=== PATIENT | male | born 1965 | race Caucasian/White ===

== ENCOUNTER 2016-11-29 10:35 | Day surgery (SDC) | payer OTHER ==
[2016-11-28 09:54] VITALS: BMI 24.3
--- NOTE | 2016-11-29 12:23 | HP ---
History & Physical Update - History History: No Change - Physical Physical: No Change - Assessment Assessment: No Change - Plan Plan: No Change
[2016-11-29] MEDS ORDERED: ACETAMINOPHEN 1000 MG/100 ML VIAL (NON FORMULARY) IVPB ONE (12:24)
[2016-11-29] MEDS ORDERED: LIDOCAINE HCL/PF 2% SDV 5ML VIAL ONE (12:26)
[2016-11-29] MEDS ORDERED: LEVOFLOXACIN 500 MG IVPB 100 ML IVPB ONE (12:26)
[2016-11-29] MEDS ORDERED: PROPOFOL 20 ML ONE (12:27)
[2016-11-29] MEDS ORDERED: MIDAZOLAM HCL 2 MG/2 ML SINGLE DOSE VIAL ONE (12:27)
[2016-11-29] MEDS ORDERED: DEXTROSE 5%-0.45% SALINE 1,000 ML IV SCH (12:30)
[2016-11-29] MEDS ORDERED: LEVOFLOXACIN 500 MG PREMIX BAG IVPB ONE (12:38)
[2016-11-29] MEDS ORDERED: LIDOCAINE HCL 2% JELLY 10 ML CARTRIDGE ONE (12:58)
[2016-11-29] MEDS ORDERED: LIDOCAINE HCL 2% JELLY 10 ML CARTRIDGE TP ONE (13:01)
[2016-11-29] MEDS ORDERED: ONDANSETRON 4 MG/2 ML VIAL IVPUSH PRN (13:21)
[2016-11-29] MEDS ORDERED: oxyCODONE HCL 5 MG TABLET PO PRN (13:21)
[2016-11-29] MEDS ORDERED: LACTATED RINGERS SOLUTION 1,000 ML IV SCH (13:30)
[2016-11-29 14:05] VITALS: TEMP 98
[2016-11-29] MEDS ORDERED: oxyCODONE HCL 5 MG TABLET ONE (15:38)
[2016-11-29 16:11] VITALS: BP 126/89; PULSE 90
--- NOTE | 2016-12-25 19:40 | OP ---
DATE OF OPERATION: 11/29/2016 PREOPERATIVE DIAGNOSIS: Bladder tumor. POSTOPERATIVE DIAGNOSIS: Normal cystoscopy. SURGEON: Wesley Dallas MD PROCEDURE: Cystoscopy. SPECIMENS: None. ESTIMATED BLOOD LOSS: None. DRAINS: None. PREOPERATIVE INDICATIONS: The patient is a 51-year-old male who was being worked up for abdominal pain, when he underwent a CAT scan, which revealed a "possible 1.1 x 0.5 cm polypoid lesion along the right posterior urinary bladder wall." Patient has a history of smoking but denies gross hematuria. He comes to the OR for cystoscopy. OPERATION: The patient was brought to the OR, placed on the table in the supine position, given anesthesia and placed in the modified lithotomy position. The groin was prepped and draped sterilely. Cystoscopy was performed. The urethra appeared to be normal. The prostate itself was mildly enlarged but otherwise normal. The bladder was examined. Both UOs were seen, they were normal with clear efflux. No tumors or stones were seen. Specifically in the area on the CAT scan was also looked at and was completely normal. The bladder was emptied. The patient was woken up. WESLEY DALLAS M.D. [id number]
== END 2016-11-29 16:19 | disposition home or self-care (01) ==
LOC: JASU-SURG 10:35
PROVIDERS: ATTEND Urology
PROC: 0TJB8ZZ Inspection of Bladder, Via Natural or Artificial Opening Endoscopic (ICD-10-PCS; principal; 2016-11-29 12:00)
DX: D41.4 Neoplasm of uncertain behavior of bladder (principal); R31.21 Asymptomatic microscopic hematuria
CPT/HCPCS: 94760

== ENCOUNTER 2016-12-02 11:33 | Emergency (ER) | payer OTHER ==
--- NOTE | 2016-12-02 11:50 | PDOC ---
Attending Attestation - Resident Resident Name: Misbah Graf - ED Attending Attestation I have performed the following: I have examined & evaluated the patient, The case was reviewed & discussed with the resident, I agree w/resident's findings & plan, Exceptions are as noted - HPI HPI: 12/02/16 11:49 The patient is a 51-year-old male s/p cystoscopy on Sunday who presents with several days of intermittent hematuria, that resolved yesterday and has been followed by frequency, urgency, hesitancy. No dysuria. No fever. No back pain. 12/02/16 12:31 - Physicial Exam PE: 12/02/16 12:33 He is well appearing and in no acute distress He does have bladder hypertrophy on physical exam He has no CVA tenderness 12/02/16 13:25 - Medical Decision Making 12/02/16 13:25 Bladder scan with 900ml of bladder volume Merchant placed with relief of his symptoms and output of 1200ml of clear urine 12/02/16 13:26 CBC and UA noted Chemistries pending
[2016-12-02 11:52] VITALS: BP 124/62; PULSE 77; TEMP 97.8; BMI 24.3
--- NOTE | 2016-12-02 12:02 | PDOC ---
History of Present Illness - General Chief Complaint: Urinary Problem Stated Complaint: urinary problem Time Seen by Provider: 12/02/16 11:37 History Source: Patient Exam Limitations: No Limitations - History of Present Illness Initial Comments: 12/02/16 12:30 Patient is a 51 year old male with significant PMH of Diverticulitis, DM & s/p Bladder polypectomy 3 days ago who presents to ED with urinary retention. He states the procedure on Sunday was to remove a polyp, but no polyp was found. He was discharged on Levaquin & percocet for pain management. On the patient developed hematuria which resolved within 1 day. Yesterday he noted his urine output had become minimal and he was starting to dribble urine whenever he had the urge to urinate. He has increased frequency, urgency and dysuria. The urine is no longer bloody. He denies fever, chills, or flank pain. Past History - Travel Traveled outside of the country in the last 30 days: No Close contact w/someone who was outside of country & ill: No - Past Medical History Allergies/Adverse Reactions: Allergies Allergy/AdvReac Type Severity Reaction Status Date / Time aspirin Allergy Verified 12/02/16 11:40 Penicillins Allergy Verified 12/02/16 11:40 Home Medications: Ambulatory Orders Cyclobenzaprine HCl [Flexeril -] 10 mg PO TID PRN 09/16/16 Oxycodone HCl/Acetaminophen [Percocet 5-325 mg Tablet] 1 tab PO Q6H PRN #12 tablet MDD 4 tabs 09/26/16 Pantoprazole Sodium 40 mg PO DAILY tablet 09/27/16 Glimepiride 1 mg PO daily in PM tablet 11/24/16 Mag Hydrox/Al Hydrox/Simeth [Mylanta *Suspension*] 30 ml PO Q6H 11/28/16 Zolpidem Tartrate [Ambien] 10 mg PO HS PRN 11/28/16 Levofloxacin [Levaquin -] 500 mg PO DAILY #3 tablet 11/29/16 Oxycodone HCl/Acetaminophen [Percocet 5-325 mg Tablet -] 1 tab PO Q4H #20 tablet MDD 6 11/29/16 Levofloxacin [Levaquin -] 500 mg PO DAILY #4 tablet 12/02/16 Anemia: No Asthma: No Cancer: No Cardiac Disorders: No CVA: No COPD: No CHF: No Dementia: No Diabetes: Yes GI Disorders: Yes (DIVERTICULITIS) Disorders: No HTN: No Hypercholesterolemia: Yes Kidney Stones: Yes Liver Disease: No Seizures: No Thyroid Disease: No - Surgical History Abdominal Surgery: Yes Orthopedic Surgery: Yes (left knee surgery) - Psycho/Social/Smoking Cessation Hx Anxiety: No Suicidal Ideation: No Smoking Status: Yes Smoking History: Current every day smoker Have you smoked in the past 12 months: Yes Number of Cigarettes Smoked Daily: 12 Information on smoking cessation initiated: Yes 'Breaking Loose' booklet given: 09/26/16 Hx Alcohol Use: No (denies) Drug/Substance Use Hx: Yes (cocaine hx) Substance Use Type: Cocaine Hx Substance Use Treatment: No Review of Systems - Review of Systems Able to Perform ROS?: Yes Is the patient limited Swedish proficient: No : Yes: Dysuria, Frequency, Hematuria, Urgency All Other Systems: Reviewed and Negative *Physical Exam - Vital Signs Last Vital Signs Temp Pulse Resp BP Pulse Ox 97.8 F 77 16 124/62 98 12/02/16 11:34 12/02/16 11:34 12/02/16 11:34 12/02/16 11:34 12/02/16 11:34 - Physical Exam General Appearance: Yes: Nourished, Appropriately Dressed, Mild Distress HEENT: positive: EOMI, XIAO, Normal ENT Inspection Neck: positive: Trachea midline, Normal Thyroid, Supple Respiratory/Chest: positive: Lungs Clear, Normal Breath Sounds Cardiovascular: positive: Regular Rhythm, Regular Rate, S1, S2 Gastrointestinal/Abdominal: positive: Normal Bowel Sounds, Flat, Soft Male Genitalia: positive: normal genitalia. negative: discharge, testicular tenderness, testicular mass, hernia, hematuria Musculoskeletal: positive: Normal Inspection Extremity: positive: Normal Inspection, Normal Range of Motion Integumentary: positive: Normal Color, Dry, Warm Neurologic: positive: Fully Oriented, Alert, Normal Mood/Affect, Motor Strength 03/09 ED Treatment Course - LABORATORY CBC & Chemistry Diagram: 12/02/16 12:57 12/02/16 12:57 Medical Decision Making - Medical Decision Making 12/02/16 12:38 Will determine urinary retention with bladder scan. Sent UA which showed elevated WBC's & urine in blood but (-) nitrites/LE. Ordered CBC & CMP to assess for kidney injury. 12/02/16 13:03 Bladder scan shows >900mL urine retained. Will need catheter placement. 12/02/16 13:34 1.1 liters urine output after dennis placed. Mild leukocytosis noted on CBC. Will get in contact with his Urologist Dr Kc. 12/02/16 13:[address] Bryant. Patient to be discharged with dennis in place. Will send prescription for Levaquin and instruct patient to see Dr Alfonso in office on Sunday. *DC/Admit/Observation/Transfer Diagnosis at time of Disposition: Urinary retention - Discharge Dispostion Disposition: HOME Admit: No - Prescriptions Prescriptions: Levofloxacin [Levaquin -] 500 mg PO DAILY #4 tablet - Referrals Referrals: Wesley Dallas MD [Staff Physician] - 2 Days - Patient Instructions Additional Instructions: Visit Dr Dallas on Sunday & he will remove dennis catheter. Take levaquin daily. If urine stops flowing or bladder/kidney pain starts, alert MD immediately & return to ED - Post Discharge Activity Work/School Note: Back to Work
[2016-12-02 12:07] LABS: PH,URINE 5.5 (4.5-8); URINE APPEARANCE SL CLOUDY; URINE BILIRUBIN Negative (NEGATIVE); URINE BLOOD 3+ (NEGATIVE); URINE COLOR a; URINE GLUCOSE (UA) 3+ (NEGATIVE); URINE KETONE Negative (NEGATIVE); URINE LEUK ESTERASE Negative (NEGATIVE); URINE NITRITE Negative (NEGATIVE); URINE PROTEIN 1+ (NEGATIVE); URINE UROBILINOGEN 0.2 E.U/dl (0.2-1.0)
[2016-12-02 12:32] LABS: URINE RBC 50-80 /hpf (0-3); URINE WBC 20-50 (3-5)
[2016-12-02 13:10] LABS: MEAN PLT VOLUME 6.8 fl (7.5-11.1)
[2016-12-02 13:17] LABS: MCH 29.2 pg (25.7-33.7); MCHC 33.7 g/dl (32.0-35.9); MEAN CELL VOLUME 86.5 fl (80-96); PLATELET COUNT 598 K/MM3 (134-434); RDW 12.7 % (11.9-15.9); WHITE BLOOD COUNT 13.3 K/mm3 (4.0-10.0)
[2016-12-02 13:25] LABS: ALBUMIN 4.6 g/dl (3.5-5.0); ALK PHOS 55 U/L (32-92); ANION GAP 13 (8-16); BILIRUBIN,TOTAL 0.6 mg/dl (0.2-1.0); CALCIUM 10.2 mg/dl (8.4-10.2); CO2 26 mmol/L (22-28); GLUCOSE,RANDOM 209 mg/dl (74-106); SGOT/AST 27 U/L (10-42); SGPT/ALT 18 U/L (10-40); TOT PROT 7.8 g/dl (6.4-8.3)
== END 2016-12-02 14:46 | disposition home or self-care (01) ==
LOC: FER 11:33
PROC: 0T9B70Z Drainage of Bladder with Drainage Device, Via Natural or Artificial Opening (ICD-10-PCS; principal; 2016-12-02)
DX: R33.9 Retention of urine, unspecified (principal); E78.00 Pure hypercholesterolemia, unspecified; F17.210 Nicotine dependence, cigarettes, uncomplicated
CPT/HCPCS: 36415; 80053; 81003; 81015; 85027; 87086; 99284-25

== ENCOUNTER 2017-11-02 06:09 | Inpatient (IN) | payer OTHER ==
--- NOTE | 2017-11-02 06:52 | PDOC ---
History of Present Illness - General Chief Complaint: Pain Stated Complaint: ABD PAIN/NAUSEA/VOMITING Time Seen by Provider: 11/02/17 06:47 History Source: Patient Exam Limitations: No Limitations - History of Present Illness Initial Comments: 11/02/17 06:57 This is a 52-year-old male who has a long history of chronic back and knee pain for which she takes Percocet 10 mg 3 times a day. Patient comes in today complaining of nausea, vomiting and abdominal pain. Patient denies any diarrhea. Patient said he has had symptoms 1 day. Patient said he is unable to keep anything in. Patient said however he is able to keep his Percocet in and did take Percocet 10mg prior to coming in. Patient denies any chest pain, shortness of breath, fever, chills, urinary complaints. PAST MEDICAL HISTORY: no significant history PAST SURGICAL HISTORY: no significant history FAMILY HISTORY: no pertinant history SOCIAL HISTORY: Pt lives with family and is employed. MEDICATIONS: reviewed ALLERGIES: As per nursing notes Review of Systems General: No fevers or chills, no weakness, no weight loss HEENT: No change in vision. No sore throat,. No ear pain CardioVascular: No chest pain or shortness of breath Respiratory:No cough, or wheezing. Gastrointestinal: + nausea, + vomitting, no diarrhea or constipation, No rectal bleeding Genitourinary: No dysuria, hematuria, or frequency Musculoskeletal: No joint or muscle pain or swelling Neurologic: No headache, vertigo, dizziness or loss of consciousness Psychiatric: nor depression Skin: No rashes or easy bruising Endocrine: no increased thirst or abnormal weight change Allergic: no skin or latex allergy All other systems reviewed and normal Exam: General: Well-nourished well-developed individual, no acute distress HEENT: Throat: Normal, tonsils normal, no erythema or exudate Neck: Supple, no meningeal signs, no lymphadenopathy Eyes::Pupils equal reactive and round, extraocular motion intact Chest: Nontender to palpation Cardiac: S1-S2 normal, regular rate and rhythm, no murmurs rubs or gallops Respiratory: Lungs clear to auscultation bilateral Abdomen: Soft, nondistended, normal bowel sounds,mildly tender to palpation diffusely, no guarding or rebound Extremities: Warm, dry, no cyanosis, clubbing, or edema Skin: No rashes Neuro: Alert and oriented x3, CN II - XII intact, nonfocal exam with normal strength, normal sensation, normal reflexes, normal gait, Psych: Normal mood and affect Care of this patient was transferred to Dr. Barragan at 7 AM. Patient's whole workup is still pending Case discussed in detail with oncoming Emergency Physician including history, physical exam and ancillary studies. Oncoming Emergency Physician has assumed care for the patient and will complete the evaluation and treatment. Patient is aware of the plan. Pt is clinically unchanged and stable. Past History - Past Medical History Allergies/Adverse Reactions: Allergies Allergy/AdvReac Type Severity Reaction Status Date / Time aspirin Allergy Verified 12/02/16 11:40 Penicillins Allergy Verified 12/02/16 11:40 Home Medications: Ambulatory Orders Cyclobenzaprine HCl [Flexeril -] 10 mg PO TID PRN 09/16/16 Zolpidem Tartrate [Ambien] 10 mg PO HS PRN 11/28/16 Cholecalciferol (Vitamin D3) [Vitamin D3] 2,000 unit PO DAILY tablet 02/11/17 Oxycodone HCl/Acetaminophen [Percocet 10-325 mg Tablet] 1 each PO TID 11/02/17 Anemia: No Asthma: No Cancer: No Cardiac Disorders: No CVA: No COPD: No CHF: No Dementia: No Diabetes: Yes GI Disorders: Yes (DIVERTICULITIS) Disorders: No HTN: No Hypercholesterolemia: Yes Kidney Stones: Yes Liver Disease: No Seizures: No Thyroid Disease: No - Surgical History Abdominal Surgery: Yes Orthopedic Surgery: Yes (left knee surgery) - Suicide/Smoking/Psychosocial Hx Smoking Status: Yes Smoking History: Current every day smoker Have you smoked in the past 12 months: Yes Number of Cigarettes Smoked Daily: 10 Information on smoking cessation initiated: Yes 'Breaking Loose' booklet given: 11/02/17 Hx Alcohol Use: No (denies) Drug/Substance Use Hx: Yes (cocaine hx) Substance Use Type: Cocaine Hx Substance Use Treatment: No *Physical Exam - Vital Signs Last Vital Signs Temp Pulse Resp BP Pulse Ox 97.9 F 103 H 20 132/87 100 11/02/17 06:14 11/02/17 06:14 11/02/17 06:14 11/02/17 06:14 11/02/17 06:14 ED Treatment Course - LABORATORY CBC & Chemistry Diagram: 11/02/17 07:00 11/02/17 07:00 *DC/Admit/Observation/Transfer Diagnosis at time of Disposition: Acute pancreatitis Qualifiers: Pancreatitis type: unspecified pancreatitis type Acute pancreatitis complication: unspecified Qualified Code(s): K85.90 - Acute pancreatitis without necrosis or infection, unspecified - Discharge Dispostion Condition at time of disposition: Guarded - Referrals - Patient Instructions - Post Discharge Activity
[2017-11-02] MEDS ORDERED: SODIUM CHLORIDE 1,000 ML IV ONE (06:54)
[2017-11-02] MEDS ORDERED: ONDANSETRON 4 MG/2 ML VIAL IVPB ONE (06:54)
[2017-11-02] MEDS ORDERED: HYOSCYAMINE SULFATE 0.125 MG *ODT PO ONE (06:55)
[2017-11-02] MEDS ORDERED: ONDANSETRON 4 MG/2 ML VIAL ONE (07:19)
[2017-11-02] MEDS ORDERED: HYOSCYAMINE SULFATE 0.125 MG *ODT ONE (07:19)
[2017-11-02] MEDS ORDERED: KETOROLAC TROMETHAMINE 30 MG/1 ML VIAL IVPUSH ONE ×2 (07:38→23:45)
[2017-11-02] MEDS ORDERED: KETOROLAC TROMETHAMINE 30 MG/1 ML VIAL ONE (07:44)
[2017-11-02 07:49] LABS: BASO % 0.1 % (0-2.0); EOS % 0.5 % (0-4.5); HEMATOCRIT 48.1 % (35.4-49); HEMOGLOBIN 16.4 GM/dl (11.7-16.9); LYMPH % 9.1 % (8-40); MCH 30.1 pg (25.7-33.7); MEAN CELL VOLUME 88.5 fl (80-96); MEAN PLT VOLUME 7.7 fl (7.5-11.1); MONO % 4.4 % (3.8-10.2); NEUT % 85.9 % (42.8-82.8); PLATELET COUNT 606 K/MM3 (134-434); RBC 5.44 M/mm3 (4.00-5.60); RDW 12.6 % (11.9-15.9); WHITE BLOOD COUNT 12.7 K/mm3 (4.0-10.8)
[2017-11-02 08:07] LABS: ALBUMIN 4.4 g/dl (3.5-5.0); ALK PHOS 64 U/L (32-92); ANION GAP 14 (8-16); BILIRUBIN,TOTAL 1.1 mg/dl (0.2-1.0); BLOOD UREA NITROGEN 22 mg/dl (7-18); CALCIUM 11.7 mg/dl (8.4-10.2); CHLORIDE 94 mmol/L (98-107); CO2 28 mmol/L (22-28); CREATININE 1.5 mg/dl (0.6-1.3); GLUCOSE,RANDOM 228 mg/dl (74-106); SGOT/AST 65 U/L (10-42); SGPT/ALT 73 U/L (10-40); SODIUM 136 mmol/L (136-145); TOT PROT 7.6 g/dl (6.4-8.3)
[2017-11-02 08:21] LABS: TROPONIN I (DFP) < 0.03 ng/ml (0.03-0.50)
[2017-11-02 08:47] LABS: LIPASE 515 U/L (22-51)
--- NOTE | 2017-11-02 09:52 | EKG ---
Test Reason : Blood Pressure : / mmHG Vent. Rate : 070 BPM Atrial Rate : 070 BPM P-R Int : 128 ms QRS Dur : 090 ms QT Int : 264 ms P-R-T Axes : 063 004 -54 degrees QTc Int : 285 ms POOR DATA QUALITY, INTERPRETATION MAY BE ADVERSELY AFFECTED SINUS RHYTHM WITH MARKED SINUS ARRHYTHMIA NONSPECIFIC T WAVE ABNORMALITY ABNORMAL ECG NO PREVIOUS ECGS AVAILABLE Confirmed by CAN CAO MD ([id number]) on 11/02/2017 9:51:44 AM Referred By: DR ERICKSON Confirmed By:CAN CAO MD
[2017-11-02] MEDS ORDERED: SODIUM CHLORIDE 1,000 ML IV STA (10:17)
[2017-11-02] MEDS ORDERED: PANTOPRAZOLE SODIUM 40 MG in SODIUM CHLORIDE 100 ML IVPB ONE (10:18)
[2017-11-02] MEDS ORDERED: PANTOPRAZOLE SODIUM 40 MG VIAL ONE (10:49)
--- NOTE | 2017-11-02 12:19 | PDOC ---
*Physical Exam - Vital Signs Last Vital Signs Temp Pulse Resp BP Pulse Ox 97.9 F 103 H 20 132/87 100 11/02/17 06:14 11/02/17 06:14 11/02/17 06:14 11/02/17 06:14 11/02/17 06:14 - Physical Exam Comments: 11/02/17 13:08 Patient appears to be controlled. No further vomiting. Nausea subsided. Admitted to hospitalist for bowel rest, intravenous fluids, and analgesics. Comments:: 11/02/17 12:[address] scan shows evidence of chronic pancreatitis, with superimposed acute pancreatitis. IV fluids, bowel rest, analgesics, admission and observation. ED Treatment Course - LABORATORY CBC & Chemistry Diagram: 11/02/17 07:00 11/02/17 07:00 - ADDITIONAL ORDERS Additional order review: Laboratory Results 11/02/17 11/02/17 07:00 07:00 Sodium 136 Potassium 4.0 Chloride 94 L Carbon Dioxide 28 Anion Gap 14 BUN 22 H D Creatinine 1.5 H D Creat Clearance w eGFR 48.77 Random Glucose 228 H D Calcium 11.7 H Total Bilirubin 1.1 H D AST 65 H D ALT 73 H D Alkaline Phosphatase 64 Creatine Kinase 42 Troponin I < 0.03 L Total Protein 7.6 Albumin 4.4 Lipase 515 H 11/02/17 07:00 RBC 5.44 MCV 88.5 MCHC 34.0 RDW 12.6 MPV 7.7 Neutrophils % 85.9 H D Lymphocytes % 9.1 D Monocytes % 4.4 Eosinophils % 0.5 Basophils % 0.1 - RADIOLOGY Radiology Studies Ordered: Category Date Time Status ABDOMEN & PELVIS CT W/O CONTR [CT] Stat CT Scan 11/02/17 08:09 Completed - Medications Given in the ED: ED Medications Discontinued Medications Generic Name Dose Route Start Last Admin Trade Name Freq PRN Reason Stop Dose Admin Hyoscyamine Sulfate 0.125 mg 11/02/17 06:55 11/02/17 07:22 Levsin Odt - PO 11/02/17 06:56 0.125 mg ONCE ONE Administration Sodium Chloride 1,000 mls @ 1,000 mls/hr 11/02/17 06:54 11/02/17 07:22 Normal Saline - IV 11/02/17 07:53 1,000 mls/hr .Q1H ONE Administration Sodium Chloride 1,000 mls @ 1,000 mls/hr 11/02/17 10:17 11/02/17 10:55 Normal Saline - IV 11/02/17 11:16 1,000 mls/hr ASDIR STA Administration Pantoprazole Sodium 40 mg/ 100 mls @ 200 mls/hr 11/02/17 10:18 11/02/17 10:55 Sodium Chloride IVPB 11/02/17 10:47 200 mls/hr ONCE ONE Administration Ketorolac Tromethamine 30 mg 11/02/17 07:38 11/02/17 07:48 Toradol Injection - IVPUSH 11/02/17 07:39 30 mg ONCE ONE Administration Ondansetron HCl 8 mg 11/02/17 06:54 11/02/17 07:22 Zofran Injection IVPB 11/02/17 06:55 8 mg ONCE ONE Administration *DC/Admit/Observation/Transfer Diagnosis at time of Disposition: Acute pancreatitis Qualifiers: Pancreatitis type: unspecified pancreatitis type Acute pancreatitis complication: unspecified Qualified Code(s): K85.90 - Acute pancreatitis without necrosis or infection, unspecified - Discharge Dispostion Condition at time of disposition: Guarded Admit: Yes - Referrals Referrals: Gildardo Coon MD [Primary Care Provider] - - Patient Instructions - Post Discharge Activity
--- NOTE | 2017-11-02 12:58 | HP ---
CHIEF COMPLAINT: abdominal pain, nausea and vomiting PCP: [facility] HISTORY OF PRESENT ILLNESS: Patient is a 52 y/o male with a past medical history of diverticulitis, cholelithasis, chronic pancreatitis, chronic back pain, duedonitis, and BPH. Patient reports two days of generalized abdominal pain with decreased appetite. He reports the abdominal pain worsened within the past 24 hours accompanied by nausea and vomiting. Patient reports he last ingested alcohol on 10/21/17. ER course was notable for: (1)lipase 515 (2)ct of abd/pelvis w/o contrast: acute pancreatitis, gallstone no evidence of acute cholecytiits, (3)ultrsound of abdomen fatty liver vs heaptocelluar disease, mobile gallstone, w/o evidence of acute cholecystitis, Recent Travel: none PAST MEDICAL HISTORY: see HPI PAST SURGICAL HISTORY: sigmoid resection (1999) Social History: employed resides at home Smoking:smoke pack a day of cigarettes Alcohol: reports last drank alcohol on 10/21/17 Drugs: no ivda Family History: non contributory Allergies aspirin Allergy (Verified 12/02/16 11:40) Penicillins Allergy (Verified 12/02/16 11:40) HOME MEDICATIONS: Home Medications Medication Instructions Recorded Cyclobenzaprine HCl [Flexeril -] 10 mg PO TID PRN 09/16/16 Zolpidem Tartrate [Ambien] 10 mg PO HS PRN 11/28/16 Cholecalciferol (Vitamin D3) 2,000 unit PO DAILY tablet 02/11/17 [Vitamin D3] Oxycodone HCl/Acetaminophen 1 each PO TID 11/02/17 [Percocet 10-325 mg Tablet] REVIEW OF SYSTEMS CONSTITUTIONAL: Absent: fever, chills, diaphoresis, generalized weakness, malaise, loss of appetite, weight change HEENT: Absent: rhinorrhea, nasal congestion, throat pain, throat swelling, difficulty swallowing, mouth swelling, ear pain, eye pain, visual changes CARDIOVASCULAR: Absent: chest pain, syncope, palpitations, irregular heart rate, lightheadedness , peripheral edema RESPIRATORY: Absent: cough, shortness of breath, dyspnea with exertion, orthopnea, wheezing, stridor, hemoptysis GASTROINTESTINAL: Present: abdominal pain,nausea, vomiting, Absent: abdominal distension, diarrhea, constipation, melena, hematochezia GENITOURINARY: Absent: dysuria, frequency, urgency, hesitancy, hematuria, flank pain, genital pain MUSCULOSKELETAL: Absent: myalgia, arthralgia, joint swelling, back pain, neck pain SKIN: Absent: rash, itching, pallor HEMATOLOGIC/IMMUNOLOGIC: Absent: easy bleeding, easy bruising, lymphadenopathy, frequent infections ENDOCRINE: Absent: unexplained weight gain, unexplained weight loss, heat intolerance, cold intolerance NEUROLOGIC: Absent: headache, focal weakness or paresthesias, dizziness, unsteady gait, seizure, mental status changes, bladder or bowel incontinence PSYCHIATRIC: Absent: anxiety, depression, suicidal or homicidal ideation, hallucinations. PHYSICAL EXAMINATION Vital Signs - 24 hr 11/02/17 06:14 Temperature 97.9 F Pulse Rate 103 H Respiratory 20 Rate Blood Pressure 132/87 O2 Sat by Pulse 100 Oximetry (%) GENERAL: Awake, alert, and fully oriented, in no acute distress. HEAD: Normal with no signs of trauma. EYES: Pupils equal, round and reactive to light, extraocular movements intact, sclera anicteric, conjunctiva clear. No lid lag. EARS, NOSE, THROAT: Ears normal, nares patent, oropharynx clear without exudates. Moist mucous membranes. NECK: Normal range of motion, supple without lymphadenopathy, JVD, or masses. LUNGS: Breath sounds equal, clear to auscultation bilaterally. No wheezes, and no crackles. No accessory muscle use. HEART: Regular rate and rhythm, normal S1 and S2 without murmur, rub or gallop. ABDOMEN: Soft, generalized abdominal tenderness, surgical scar to lower abdomen , well healed, non distended, normoactive bowel sounds, no guarding, no rebound , no masses. + hepatomegaly, negative splenomegaly. MUSCULOSKELETAL: Normal range of motion at all joints. No bony deformities or tenderness. No CVA tenderness. UPPER EXTREMITIES: 2+ pulses, warm, well-perfused. No cyanosis. No clubbing. No peripheral edema. LOWER EXTREMITIES: 2+ pulses, warm, well-perfused. No calf tenderness. No peripheral edema. NEUROLOGICAL: Cranial nerves II-XII intact. Normal speech. Normal gait. PSYCHIATRIC: Cooperative. Good eye contact. Appropriate mood and affect. SKIN: Warm, dry, normal turgor, no rashes or lesions noted, normal capillary refill. Laboratory Results - last 24 hr 11/02/17 11/02/17 11/02/17 07:00 07:00 07:00 WBC 12.7 H RBC 5.44 Hgb 16.4 Hct 48.1 MCV 88.5 MCH 30.1 MCHC 34.0 RDW 12.6 Plt Count 606 H MPV 7.7 Neutrophils % 85.9 H D Lymphocytes % 9.1 D Monocytes % 4.4 Eosinophils % 0.5 Basophils % 0.1 Sodium 136 Potassium 4.0 Chloride 94 L Carbon Dioxide 28 Anion Gap 14 BUN 22 H D Creatinine 1.5 H D Creat Clearance w eGFR 48.77 Random Glucose 228 H D Calcium 11.7 H Total Bilirubin 1.1 H D AST 65 H D ALT 73 H D Alkaline Phosphatase 64 Creatine Kinase 42 Troponin I < 0.03 L Total Protein 7.6 Albumin 4.4 Lipase 515 H ASSESSMENT/PLAN: F/E/N - npo-->ivf - replete lytes prn ppx - heparin - protonix - scd - oob dispo: pt requires inpatient admission Problem List - Problem (1) Acute pancreatitis Assessment/Plan: - ct of abdomen and pelvis and ultrasound reviewed,pt does have a hx of pancreatis, however, mobile stones was noted on ultrasound, trend amylase/ lipase, pending lipid panel, appreciate GI input (Mariella) - prn pain medication - npo except for ice chips Code(s): K85.90 - ACUTE PANCREATITIS WITHOUT NECROSIS OR INFECTION, UNSP Qualifiers: Pancreatitis type: unspecified pancreatitis type Acute pancreatitis complication: unspecified Qualified Code(s): K85.90 - Acute pancreatitis without necrosis or infection, unspecified (2) Cholelithiasis Assessment/Plan: - appreciate GI input Code(s): K80.20 - CALCULUS OF GALLBLADDER W/O CHOLECYSTITIS W/O OBSTRUCTION Qualifiers: Cholecystitis presence: without cholecystitis (3) Diabetes mellitus Assessment/Plan: - pt denies any home medications, pending hemoglobin a1c Code(s): E11.9 - TYPE 2 DIABETES MELLITUS WITHOUT COMPLICATIONS (4) Hyperlipidemia Assessment/Plan: - denies any statin use, pending lipid profile Code(s): E78.5 - HYPERLIPIDEMIA, UNSPECIFIED (5) Renal insufficiency Assessment/Plan: - creatine 1.5, baseline 0.9, prerenal due to hypovolemia, IV hydration, repeat creatine in the AM Code(s): N28.9 - DISORDER OF KIDNEY AND URETER, UNSPECIFIED Visit type - Emergency Visit Emergency Visit: Yes ED Registration Date: 11/02/17 Care time: The patient presented to the Emergency Department on the above date and was hospitalized for further evaluation of their emergent condition. - New Patient This patient is new to me today: Yes Date on this admission: 11/02/17 - Critical Care Critical Care patient: No
[2017-11-02] MEDS ORDERED: ZOLPIDEM TARTRATE 5 MG TABLET PO PRN (13:01)
[2017-11-02] MEDS ORDERED: ACETAMINOPHEN 325 MG TABLET (FP) PO PRN (13:10)
[2017-11-02] MEDS ORDERED: morphine CARPU-JECT 4 MG/1 ML DISP.SYRIN IVPUSH PRN (13:12)
[2017-11-02] MEDS ORDERED: SODIUM CHLORIDE 0.45% 1,000 ML IV SCH (14:45)
[2017-11-02] MEDS ORDERED: ONDANSETRON 4 MG/2 ML VIAL IVPUSH PRN (15:05)
[2017-11-02 15:11] LABS: PH,URINE 8.5 (4.5-8); URINE APPEARANCE Clear; URINE BILIRUBIN Negative (NEGATIVE); URINE BLOOD Negative (NEGATIVE); URINE GLUCOSE (UA) Trace (NEGATIVE); URINE KETONE Trace (NEGATIVE); URINE NITRITE Negative (NEGATIVE); URINE UROBILINOGEN 0.2 (0.2-1.0)
[2017-11-02 15:12] LABS: URINE COLOR YELLOW; URINE PROTEIN 1+ (NEGATIVE)
[2017-11-02 15:26] VITALS: BMI 22.2
[2017-11-02] MEDS ORDERED: SODIUM CHLORIDE 1,000 ML IV SCH ×2 (15:30→16:41)
--- NOTE | 2017-11-02 15:35 | CON.GI ---
Consult Consult Specialty:: GI - History of Present Illness History of Present Illness: Chart reviewed. A 52 yom admitted 1 day ago with epigastric, radiating to the back pain, which started the night before and escalated to severe prompting visit to ED. The pain was associated with nausea and vomiting. No fever, chills, diarrhea, melena , hematochezia, hematemesis, jaundice. Had 2 shots of Fireball the day before. History of pancreatitis in the past with pancreatic calcifications, dilated PD and inflammation around head of the pancrease on a CT obtained on this admission. US of the liver showed mobile GS and borderline CBD and no reported filling defects - History Source History Provided By: Patient, Medical Record - Alcohol/Substance Use Hx Alcohol Use: Yes (denies) - Smoking History Smoking history: Current every day smoker Have you smoked in the past 12 months: Yes Aproximately how many cigarettes per day: 10 Home Medications - Allergies Allergies/Adverse Reactions: Allergies Allergy/AdvReac Type Severity Reaction Status Date / Time aspirin Allergy Verified 12/02/16 11:40 Penicillins Allergy Verified 12/02/16 11:40 - Home Medications Home Medications: Ambulatory Orders Cyclobenzaprine HCl [Flexeril -] 10 mg PO TID PRN 09/16/16 Zolpidem Tartrate [Ambien] 10 mg PO HS PRN 11/28/16 Cholecalciferol (Vitamin D3) [Vitamin D3] 2,000 unit PO DAILY tablet 02/11/17 Oxycodone HCl/Acetaminophen [Percocet 10-325 mg Tablet] 1 each PO TID 11/02/17 Family Disease History - Family Disease History Family History: Unremarkable (non-contributory) Review of Systems Findings/Remarks: Please refer to H&P Physical Exam-GI Vital Signs: Vital Signs Temperature 99.2 F 11/02/17 15:07 Pulse Rate 103 H 11/02/17 15:07 Respiratory Rate 16 11/02/17 15:07 Blood Pressure 111/70 11/02/17 15:07 O2 Sat by Pulse Oximetry (%) 100 11/02/17 06:14 Constitutional: Yes: Well Nourished, No Distress, Calm Eyes: Yes: Conjunctiva Clear HENT: Yes: Atraumatic Neck: Yes: Supple Cardiovascular: Yes: Regular Rate and Rhythm Respiratory: Yes: Regular Gastrointestinal Inspection: No: Ascites, Distention ...Auscultate: Yes: Normoactive Bowel Sounds ...Palpate: Yes: Soft, Tenderness, Epigastium. No: Firm/Rigid, Guarding, Mass, Pulsatile Mass, Tenderness, Rebound Neurological: Yes: Alert, Oriented Labs: CBC, BMP 11/02/17 07:00 11/02/17 07:00 Laboratory Results - last 24 hr 11/02/17 11/02/17 11/02/17 07:00 07:00 07:00 WBC 12.7 H RBC 5.44 Hgb 16.4 Hct 48.1 MCV 88.5 MCH 30.1 MCHC 34.0 RDW 12.6 Plt Count 606 H MPV 7.7 Neutrophils % 85.9 H D Lymphocytes % 9.1 D Monocytes % 4.4 Eosinophils % 0.5 Basophils % 0.1 Sodium 136 Potassium 4.0 Chloride 94 L Carbon Dioxide 28 Anion Gap 14 BUN 22 H D Creatinine 1.5 H D Creat Clearance w eGFR 48.77 Random Glucose 228 H D Calcium 11.7 H Total Bilirubin 1.1 H D AST 65 H D ALT 73 H D Alkaline Phosphatase 64 Creatine Kinase 42 Troponin I < 0.03 L Total Protein 7.6 Albumin 4.4 Lipase 515 H Urine Color Urine Appearance Urine pH Ur Specific [place] Urine Protein Urine Glucose (UA) Urine Ketones Urine Blood Urine Nitrite Urine Bilirubin Urine Urobilinogen Ur Leukocyte Esterase 11/02/17 15:07 WBC RBC Hgb Hct MCV MCH MCHC RDW Plt Count MPV Neutrophils % Lymphocytes % Monocytes % Eosinophils % Basophils % Sodium Potassium Chloride Carbon Dioxide Anion Gap BUN Creatinine Creat Clearance w eGFR Random Glucose Calcium Total Bilirubin AST ALT Alkaline Phosphatase Creatine Kinase Troponin I Total Protein Albumin Lipase Urine Color Yellow Urine Appearance Clear Urine pH 8.5 H D Ur Specific [place] 1.015 Urine Protein 1+ H Urine Glucose (UA) Trace Urine Ketones Trace Urine Blood Negative Urine Nitrite Negative Urine Bilirubin Negative Urine Urobilinogen 0.2 Ur Leukocyte Esterase Negative Imaging - Results Cat Scan: Report Reviewed Ultrasound: Report Reviewed Problem List - Problems (1) Acute pancreatitis Code(s): K85.90 - ACUTE PANCREATITIS WITHOUT NECROSIS OR INFECTION, UNSP Qualifiers: Pancreatitis type: unspecified pancreatitis type Acute pancreatitis complication: unspecified Qualified Code(s): K85.90 - Acute pancreatitis without necrosis or infection, unspecified (2) Abdominal pain Code(s): R10.9 - UNSPECIFIED ABDOMINAL PAIN Qualifiers: Abdominal location: unspecified location Qualified Code(s): R10.9 - Unspecified abdominal pain (3) Cholelithiasis Code(s): K80.20 - CALCULUS OF GALLBLADDER W/O CHOLECYSTITIS W/O OBSTRUCTION Qualifiers: Cholecystitis presence: without cholecystitis (4) Smoking greater than 30 pack years Code(s): F17.210 - NICOTINE DEPENDENCE, CIGARETTES, UNCOMPLICATED (5) Hyperlipidemia Code(s): E78.5 - HYPERLIPIDEMIA, UNSPECIFIED Assessment/Plan Mild acute on chronic pancreatitis w/o other organ system involvement, or signs of cholangitis. CBD borderline size and dilated PB may be the consequence of chronic pancreatitis. R/o acute obstruction. Cholelithiasis w/o signs of cholecystitis. MRCP NPO IVF @ 5-10 ml/hr/kg pain and antiemetics PRN If MRCP positive for choledocolithiasis, will start abx and transfer [facility] for ERCP Sx eval for Cholelithiasis discussed with the patient and hospitalist
[2017-11-02] MEDS: morphine SULFATE 4 MG/ML VIAL IVPUSH PRN (15:53)
[2017-11-02] MEDS: NICOTINE 14 MG/24 HOURS TOPICAL PATCH TD SCH ×2 (15:56→17:14)
[2017-11-02] MEDS: LEVOFLOXACIN 250 MG IVPB 250 MG/50 ML MG IVPB SCH (17:02)
[2017-11-02 17:56] LABS: AMORP PHOS MODERATE /hpf (NONE SEEN); EPI CELLS FEW /HPF; URINE RBC 0-3 /hpf (0-3)
[2017-11-02] MEDS ORDERED: CIPROFLOXACIN 200 MG/D5W 100 ML IVPB SCH (22:00)
[2017-11-02] MEDS: METRONIDAZOLE PREMIXED IVPB 250 MG/50 ML MG IVPB SCH (23:35)
[2017-11-02] MEDS: HEPARIN NA (PORCINE) 5,000 UNITS/ML 1ML VIAL SQ SCH (23:35)
[2017-11-03] MEDS: morphine SULFATE 4 MG/ML VIAL IVPUSH PRN ×4 (01:26→18:30)
[2017-11-03] MEDS: METRONIDAZOLE PREMIXED IVPB 250 MG/50 ML MG IVPB SCH ×2 (04:58→09:02)
[2017-11-03] MEDS ORDERED: REFRIGERATED ANITBIOTICS ONE ×2 (09:25→16:33)
[2017-11-03] MEDS: PANTOPRAZOLE SODIUM 40 MG VIAL IVPUSH SCH (10:00)
[2017-11-03] MEDS ORDERED: CHOLECALCIFEROL (VITAMIN D3) 1,000 UNIT TABLET (FP) PO SCH (10:00)
[2017-11-03] MEDS: HEPARIN NA (PORCINE) 5,000 UNITS/ML 1ML VIAL SQ SCH ×2 (10:00→21:39)
--- NOTE | 2017-11-03 10:00 | CONSULT ---
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 PMHx: chronic pancreatitis PSHx: sigmoid colectomy for diverticulitis Home Medications Medication Instructions Recorded Cyclobenzaprine HCl [Flexeril -] 10 mg PO TID PRN 09/16/16 Zolpidem Tartrate [Ambien] 10 mg PO HS PRN 11/28/16 Cholecalciferol (Vitamin D3) 2,000 unit PO DAILY tablet 02/11/17 [Vitamin D3] Oxycodone HCl/Acetaminophen 1 each PO TID 11/02/17 [Percocet 10-325 mg Tablet] Allergies Allergy/AdvReac Type Severity Reaction Status Date / Time aspirin Allergy Verified 12/02/16 11:40 Penicillins Allergy Verified 12/02/16 11:40 PHYSICAL EXAM: GENERAL: Awake, alert, and fully oriented, in no slight distress. HEAD: Normal with no signs of trauma. EYES: sclera anicteric, conjunctiva clear. NECK: Normal ROM, supple without lymphadenopathy, JVD, or masses. ABDOMEN: Soft, tender in epigastrium and ? RUQ?, not distended, normoactive bowel sounds, no guarding, no rebound, no masses. No organomegaly. Healed incision w/o hernia(s) MUSCULOSKELETAL: Normal ROM at all joints. No bony deformities or tenderness. No CVA tenderness. UPPER EXTREMITIES: 2+ pulses, warm, well-perfused. No cyanosis. Cap refill <2 seconds. No peripheral edema. LOWER EXTREMITIES: 2+ pulses, warm, well-perfused. No calf tenderness. No peripheral edema. NEUROLOGICAL: Normal speech, gait not observed. PSYCH: Cooperative. Good eye contact. Appropriate mood and affect. SKIN: Warm, dry, normal turgor, no rashes or lesions noted. Vital Signs Temperature 99.1 F 11/03/17 06:51 Pulse Rate 83 11/03/17 06:51 Respiratory Rate 20 11/03/17 09:03 Blood Pressure 138/83 11/03/17 06:51 O2 Sat by Pulse Oximetry (%) 99 11/03/17 09:03 Lab Results WBC 12.7 K/mm3 (4.0-10.8) H 11/02/17 07:00 RBC 5.44 M/mm3 (4.00-5.60) 11/02/17 07:00 Hgb 16.4 GM/dl (11.7-16.9) 11/02/17 07:00 Hct 48.1 % (35.4-49) 11/02/17 07:00 MCV 88.5 fl (80-96) 11/02/17 07:00 MCHC 34.0 g/dl (32.0-35.9) 11/02/17 07:00 RDW 12.6 % (11.9-15.9) 11/02/17 07:00 Plt Count 606 K/MM3 (134-434) H 11/02/17 07:00 Sodium 136 mmol/L (136-145) 11/02/17 07:00 Potassium 4.0 mmol/L (3.5-5.1) 11/02/17 07:00 Chloride 94 mmol/L (98-107) L 11/02/17 07:00 Carbon Dioxide 28 mmol/L (22-28) 11/02/17 07:00 Anion Gap 14 (8-16) 11/02/17 07:00 BUN 22 mg/dl (7-18) H D 11/02/17 07:00 Creatinine 1.5 mg/dl (0.6-1.3) H D 11/02/17 07:00 Random Glucose 228 mg/dl (74-106) H D 11/02/17 07:00 Calcium 11.7 mg/dl (8.4-10.2) H 11/02/17 07:00 w/u to date reviewed IMP: acute on chronic pancreatitis; ? ETOH induced vs. biliary in origin; favor the former PLAN: Suggest NPO/IVF/recheck amylase/lipase; analgesics as necessary; f/u imaging in a few days to check for pseudocyst developement etc.; will f/u. Manav Saini MD FACS Visit type - Case Type Case Type: ED Admission - Emergency Emergency Visit: Yes ED Registration Date: 11/02/17 Care time: The patient presented to the Emergency Department on the above date and was hospitalized for further evaluation of their emergent condition. - New patient This patient is new to me today: Yes Date on this admission: 11/03/17 - Critical Care Critical Care patient: No
[2017-11-03] MEDS: LEVOFLOXACIN 250 MG IVPB 250 MG/50 ML MG IVPB SCH (10:05)
[2017-11-03] MEDS: NICOTINE 14 MG/24 HOURS TOPICAL PATCH TD SCH (10:40)
[2017-11-03 12:36] LABS: MAGNESIUM 1.4 mg/dL (1.8-2.4)
--- NOTE | 2017-11-03 13:05 | PN ---
Physical Exam: SUBJECTIVE: Patient seen and examined He continues to have upper abdominal pain radiating to the mid back. A compnent of the back pain is similar to his chronic back pain. Since admission there has been no further vomiting. OBJECTIVE: Vital Signs Period Temp Pulse Resp BP Sys/Clement Pulse Ox Last 24 Hr 98 F-99.2 F 83-103 16-20 111-138/70-85 94-100 GENERAL: The patient is awake, alert, and fully oriented, in no acute distress. He recently was dosed with IV morphine for the abdominal and back pain. HEAD: Normal with no signs of trauma. EYES: PERRL, extraocular movements intact, sclera anicteric, conjunctiva clear. No ptosis. ENT: Ears normal, nares patent, oropharynx clear without exudates, moist mucous membranes. NECK: Trachea midline, full range of motion, supple. LUNGS: Breath sounds equal, clear to auscultation bilaterally, no wheezes, no crackles, no accessory muscle use. HEART: Regular rate and rhythm, S1, S2 without murmur, rub or gallop. ABDOMEN: Soft, normoactive bowel sounds, positive tenderness in the upper abdomen, both LUQ and RUQ. No cheng's sign. Mild lower abd tenderness. No rebound tenderness. EXTREMITIES: 2+ pulses, warm, well-perfused, no edema. NEUROLOGICAL: Cranial nerves II through XII grossly intact. Normal speech. PSYCH: Normal mood, normal affect. SKIN: Warm, dry, normal turgor, no rashes or lesions noted Laboratory Results - last 24 hr 11/02/17 11/03/17 15:07 07:15 Hemoglobin A1c % 8.7 H Urine Color Yellow Urine Appearance Clear Urine pH 8.5 H D Ur Specific [place] 1.015 Urine Protein 1+ H Urine Glucose (UA) Trace Urine Ketones Trace Urine Blood Negative Urine Nitrite Negative Urine Bilirubin Negative Urine Urobilinogen 0.2 Ur Leukocyte Esterase Negative Urine RBC 0-3 Urine WBC 3-5 Ur Epithelial Cells Few Amorphous Phosphates Moderate Active Medications Generic Name Dose Route Start Last Admin Trade Name Freq PRN Reason Stop Dose Admin Acetaminophen 650 mg 11/02/17 13:10 Tylenol - PO Q4H PRN FEVER OR PAIN Cholecalciferol 2,000 unit 11/03/17 10:00 Vitamin D3 - PO DAILY CINDY Heparin Sodium (Porcine) 5,000 unit 11/02/17 22:00 11/02/17 23:35 Heparin - SQ 5,000 unit BID CINDY Administration Metronidazole 250 mg in 50 mls @ 50 mls/hr 11/02/17 16:15 11/03/17 04:58 Flagyl 250mg Premixed Ivpb - IVPB 50 mls/hr Q6H-IV CINDY Administration Sodium Chloride 1,000 mls @ 150 mls/hr 11/02/17 16:41 11/02/17 17:02 Normal Saline - IV 11/03/17 15:30 150 mls/hr ASDIR CINDY Administration Morphine Sulfate 4 mg 11/02/17 14:48 11/03/17 06:25 Morphine Sulfate IVPUSH 4 mg Q6H PRN Administration PAIN LEVEL 6-10 Nicotine 14 mg 11/02/17 14:45 11/02/17 17:14 Nicoderm Patch - TD 14 mg DAILY CINDY Administration Ondansetron HCl 4 mg 11/02/17 15:05 Zofran Injection IVPUSH Q8H PRN NAUSEA Pantoprazole Sodium 40 mg 11/03/17 10:00 Protonix Iv IVPUSH DAILY CINDY Zolpidem Tartrate 10 mg 11/02/17 13:01 Ambien - PO HS PRN INSOMNIA ASSESSMENT/PLAN: 1. Acute on chronic pancreatitis possible etiologies include alcohol, but patient states he only drank 2 shots on 10/28 for Eder and does not otherwise drink (unclear if he is being completely honest about alcohol intake as his girlfriend is at the bedside), versus gallstone pancreatitis as his sono does show gallstone, versus ductal stenosis in the proximal portion of the pancreatic duct, which may be from prior pancreatitis with calcification of the duct NPO for now, ice chips as desired no signs of acute cholecystitis on CT, MR, or sono, will d/c antibiotics and observe continue IV fluids, decrease rate to 100 ml per hour 2. hypercalcemia stop vitamin D repeat BMP pending from today continue hydration 3. DM no prior diagnosis of DM, but HbA1c is 8.7 repeat glucose on BMP today will likely need treatment for DM once diet resumes 4. ID WBC 12, repeat pending today, likely related to acute pancreatitis and not to infection no evidence for acute cholecystitis stop antibiotics and monitor for any signs of infection 5. elevated LFT's cholelithiasis without acute cholecystitis by imaging fatty liver, versus alcoholic, vs viral hepatitis repeat LFT's will need further workup 6. prophylaxis SQ heparin bid Visit type - Emergency Visit Emergency Visit: Yes ED Registration Date: 11/02/17 Care time: The patient presented to the Emergency Department on the above date and was hospitalized for further evaluation of their emergent condition. - New Patient This patient is new to me today: Yes Date on this admission: 11/03/17 - Critical Care Critical Care patient: No - Discharge Referral Referred to [facility] No
[2017-11-03 13:06] LABS: BASO % 0.2 % (0-2.0); EOS % 0.3 % (0-4.5); HEMATOCRIT 39.6 % (35.4-49); HEMOGLOBIN 13.3 GM/dl (11.7-16.9); MCH 29.6 pg (25.7-33.7); MCHC 33.5 g/dl (32.0-35.9); MEAN CELL VOLUME 88.3 fl (80-96); MEAN PLT VOLUME 6.7 fl (7.5-11.1); MONO % 5.6 % (3.8-10.2); NEUT % 87.9 % (42.8-82.8); PLATELET COUNT 417 K/MM3 (134-434); RBC 4.49 M/mm3 (4.00-5.60); RDW 13.1 % (11.9-15.9)
[2017-11-03 13:13] LABS: ALBUMIN 3.2 g/dl (3.5-5.0); ALK PHOS 46 U/L (32-92); ANION GAP 7 (8-16); BLOOD UREA NITROGEN 27 mg/dl (7-18); CALCIUM 8.9 mg/dl (8.4-10.2); CHLORIDE 102 mmol/L (98-107); CO2 25 mmol/L (22-28); CREATININE 1.8 mg/dl (0.6-1.3); GLUCOSE,RANDOM 80 mg/dl (74-106); POTASSIUM 3.6 mmol/L (3.5-5.1); SGOT/AST 26 U/L (10-42); SODIUM 134 mmol/L (136-145); TOT PROT 5.6 g/dl (6.4-8.3)
[2017-11-03] MEDS ORDERED: SODIUM CHLORIDE 1,000 ML IV SCH ×2 (13:15→15:15)
[2017-11-03 13:40] LABS: LIPASE 660 U/L (22-51)
[2017-11-03 13:41] LABS: AMYLASE 1630 U/L (25-125)
[2017-11-03] MEDS ORDERED: SODIUM CHLORIDE 1,000 ML IV STA (15:02)
[2017-11-03] MEDS ORDERED: MAGNESIUM SULF 50% (8.12 MEQ/2 ML-1 GM VIAL) IVPB ONE (15:07)
[2017-11-03 18:14] LABS: SGPT/ALT 34 U/L (10-40)
[2017-11-03] MEDS ORDERED: morphine SULFATE 4 MG/ML VIAL ONE (18:24)
--- NOTE | 2017-11-03 22:12 | CON.NEP ---
Consult Consult Specialty:: Nephrology Referred by:: Shalonda Reason for Consultation:: kidney dysfunction - History of Present Illness Chief Complaint: abd pain, dry mouth History of Present Illness: s/p abd pain and nausea and vomiting x 24 hours from sun to last week large volume vomitus crampy abd pain radiating to the back when he was not better, he came to ER on going into sunday he had low bp's 111 systolic documented here npw BP is 130s systolic - History Source History Provided By: Patient, Medical Record Limitations to Obtaining History: No Limitations - Past Medical History Gastrointestinal: Yes: Peptic Ulcer Disease Hepatobiliary: Yes: Cholelithiasis Renal/: Yes: Renal Calculi Endocrine: Yes: Diabetes Mellitus - Alcohol/Substance Use Hx Alcohol Use: No (denies) - Smoking History Smoking history: Current every day smoker Have you smoked in the past 12 months: Yes Aproximately how many cigarettes per day: 10 Home Medications - Allergies Allergies/Adverse Reactions: Allergies Allergy/AdvReac Type Severity Reaction Status Date / Time aspirin Allergy Verified 12/02/16 11:40 Penicillins Allergy Verified 12/02/16 11:40 - Home Medications Home Medications: Ambulatory Orders Cyclobenzaprine HCl [Flexeril -] 10 mg PO TID PRN 09/16/16 Zolpidem Tartrate [Ambien] 10 mg PO HS PRN 11/28/16 Cholecalciferol (Vitamin D3) [Vitamin D3] 2,000 unit PO DAILY tablet 02/11/17 Oxycodone HCl/Acetaminophen [Percocet 10-325 mg Tablet] 1 each PO TID 11/02/17 Review of Systems - Review of Systems Constitutional: reports: Loss of Appetite, Malaise Eyes: reports: No Symptoms HENT: reports: No Symptoms, Other (dry mouth) Neck: reports: No Symptoms Cardiovascular: reports: No Symptoms Respiratory: reports: No Symptoms Gastrointestinal: reports: Abdominal Pain, Bloating, Vomiting Genitourinary: reports: Flank Pain, Other (dimished stream h/o cystoscopy) Breasts: reports: No Symptoms Reported Musculoskeletal: reports: Back Pain Integumentary: reports: No Symptoms Neurological: reports: No Symptoms Endocrine: reports: Increased Thirst Hematology/Lymphatic: reports: No Symptoms Psychiatric: reports: No Symptoms Nephrology Consult - Height Height: 5 ft 9 in - Weight Weight: 150 lb 14.4 oz - BMI Body Mass Index (BMI): 22.2 - Lab Results CBC,BMP: CBC, BMP 11/03/17 12:49 11/03/17 07:15 Anion Gap: Anion Gap Anion Gap 7 (8-16) L 11/03/17 07:15 - Physical Examination Vital Signs: Vital Signs Temperature 99.2 F 11/03/17 14:17 Pulse Rate 87 11/03/17 14:17 Respiratory Rate 18 11/03/17 14:17 Blood Pressure 135/79 11/03/17 14:17 O2 Sat by Pulse Oximetry (%) 97 11/03/17 14:17 Constitutional: Yes: Well Nourished, No Distress, Calm Eyes: Yes: WNL, Conjunctiva Clear, EOM Intact HENT: Yes: WNL, Atraumatic, Normocephalic Neck: Yes: WNL, Supple, Trachea Midline Cardiovascular: Yes: WNL, Regular Rate and Rhythm Respiratory: Yes: WNL, Regular, CTA Bilaterally Gastrointestinal: Yes: Soft, Distention, Hypoactive Bowel Sounds, Tenderness Renal/: Yes: WNL Musculoskeletal: Yes: WNL Extremities: Yes: WNL Edema: No Peripheral Pulses WNL: Yes Integumentary: Yes: WNL Neurological: Yes: WNL Psychiatric: Yes: WNL Assessment/Plan AZOTEMIA/PETER serum creat 1.5 on admission to 1.8 on day 2 of admission probable prerenal from large volume vomiting x 2 days, no intake non oliguric R/o underlying chronic kidney disease from DM (on meds x 3 years) may have a component of third spacing in the abd (bloating and abd distention) Acute Pancreatitis by MRI abd, edema Chronic pancreatitis by CT scan Gallstone Proteinuria from acute illness Plan- continue hydration by IVF at same rate follow up cmp tomorrow ultrasound of kidneys and bladder
[2017-11-04] MEDS: morphine SULFATE 4 MG/ML VIAL IVPUSH PRN ×4 (00:45→18:36)
--- NOTE | 2017-11-04 09:38 | PN ---
Progress Note (short form) - Note Progress Note: Attending Surgeon Seen in nf/u; states he feels a little better; wants to eat VSS AF abdomen-soft; minimal tenderness; o/w no change labs pending today IMP: pancreatitis gallstone vs. EtOH PLAN: continue present tx.; will f/u and will need repeat CT scan 11/06/16. Manav Saini MD FACS
[2017-11-04] MEDS: HEPARIN NA (PORCINE) 5,000 UNITS/ML 1ML VIAL SQ SCH ×2 (10:22→21:20)
[2017-11-04] MEDS: NICOTINE 14 MG/24 HOURS TOPICAL PATCH TD SCH (10:23)
[2017-11-04] MEDS: PANTOPRAZOLE SODIUM 40 MG VIAL IVPUSH SCH (10:25)
--- NOTE | 2017-11-04 11:17 | PN ---
Physical Exam: SUBJECTIVE: Patient seen and examined Patient states his abdominal pain is significantly better today. No vomiting. States he hears his bowels gurgling and he feels return of some appetite. Went for bladder and renal sono this morning for further evaluation of his creatinine rise to 1.8 yesterday. OBJECTIVE: Vital Signs Period Temp Pulse Resp BP Sys/Clement Pulse Ox Last 24 Hr 97.9 F-99.2 F 79-96 16-18 131-140/72-81 96-97 GENERAL: The patient is awake, alert, and fully oriented, in no acute distress. He appears much more comfortable than yesterday. HEAD: Normal with no signs of trauma. EYES: PERRL, extraocular movements intact, sclera anicteric, conjunctiva clear. No ptosis. ENT: Ears normal, nares patent, oropharynx clear without exudates, moist mucous membranes. NECK: Trachea midline, full range of motion, supple. LUNGS: Breath sounds equal, clear to auscultation bilaterally, no wheezes, no crackles, no accessory muscle use. HEART: Regular rate and rhythm, S1, S2 without murmur, rub or gallop. ABDOMEN: Soft, mild upper abdominal tenderness, significantly softer than yesterday with less tenderness, normoactive bowel sounds, no guarding, no rebound. EXTREMITIES: 2+ pulses, warm, well-perfused, no edema. NEUROLOGICAL: Cranial nerves II through XII grossly intact. Normal speech, up and ambulating. PSYCH: Normal mood, normal affect. SKIN: Warm, dry, normal turgor, no rashes or lesions noted Laboratory Results - last 24 hr 11/03/17 11/03/17 07:15 12:49 WBC 13.0 H RBC 4.49 Hgb 13.3 D Hct 39.6 D MCV 88.3 MCH 29.6 MCHC 33.5 RDW 13.1 Plt Count 417 D MPV 6.7 L D Neutrophils % 87.9 H Lymphocytes % 6.0 L D Monocytes % 5.6 Eosinophils % 0.3 Basophils % 0.2 Sodium 134 L Potassium 3.6 Chloride 102 Carbon Dioxide 25 Anion Gap 7 L BUN 27 H D Creatinine 1.8 H Creat Clearance w eGFR 39.52 Random Glucose 80 D Calcium 8.9 D Phosphorus 4.0 Magnesium 1.4 L D Total Bilirubin 1.0 AST 26 D ALT 34 D Alkaline Phosphatase 46 D Total Protein 5.6 L D Albumin 3.2 L D Total Amylase 1630 H* Lipase 660 H Active Medications Generic Name Dose Route Start Last Admin Trade Name Sebastian PRN Reason Stop Dose Admin Acetaminophen 650 mg 11/02/17 13:10 Tylenol - PO Q4H PRN FEVER OR PAIN Heparin Sodium (Porcine) 5,000 unit 11/02/17 22:00 11/03/17 21:39 Heparin - SQ 5,000 unit BID CINDY Administration Sodium Chloride 1,000 mls @ 150 mls/hr 11/03/17 15:15 11/03/17 15:30 Normal Saline - IV 150 mls/hr ASDIR CINDY Administration Morphine Sulfate 4 mg 11/02/17 14:48 11/04/17 06:36 Morphine Sulfate IVPUSH 4 mg Q6H PRN Administration PAIN LEVEL 6-10 Nicotine 14 mg 11/02/17 14:45 11/03/17 10:40 Nicoderm Patch - TD 14 mg DAILY CINDY Administration Ondansetron HCl 4 mg 11/02/17 15:05 Zofran Injection IVPUSH Q8H PRN NAUSEA Pantoprazole Sodium 40 mg 11/03/17 10:00 11/03/17 10:00 Protonix Iv IVPUSH 40 mg DAILY CINDY Administration Zolpidem Tartrate 10 mg 11/02/17 13:01 Ambien - PO HS PRN INSOMNIA Repeat labs today reviewed but not yet in computer. WBC improved to 11.5, neutrophils down to 80% from 88% Hb down with aggressive hydration to 11.4 BUN/Creat markedly improved to 21/1.3 mag repleted yesterday, now 1.88 lipase markedly improved to 114 bili 1.7, increased, but alk phos is down to 44 and transaminases are down and normal glucose 62 ASSESSMENT/PLAN: overall good progress with less pain and improving labs, resolving PETER 1. Acute pancreatitis again, likely gallstone, possibly alcohol, also possibly ductal abnormality induced significantly improved clinically with soft abdomen and active bowel sounds, pain significantly better will start clears slowly 2. PETER Very likely dehydration, now markedly improved with increased fluid boluses and maintenance fluids Renal sono prelim with no hydro, await final reading 3. DM glucose well controlled while NPO 4. Fluids/electrolytes mag repleted will give IV KCl for borderline low K 5. Prophylaxis pantoprazole sq heparin bid Visit type - Emergency Visit Emergency Visit: Yes ED Registration Date: 11/02/17 Care time: The patient presented to the Emergency Department on the above date and was hospitalized for further evaluation of their emergent condition. - New Patient This patient is new to me today: No - Critical Care Critical Care patient: No - Discharge Referral Referred to [facility] No
[2017-11-04 11:30] LABS: BLOOD UREA NITROGEN 21 mg/dl (7-18); CREATININE 1.3 mg/dl (0.6-1.3); GLUCOSE,RANDOM 62 mg/dl (74-106); SODIUM 134 mmol/L (136-145)
[2017-11-04 11:31] LABS: ALBUMIN 2.6 g/dl (3.5-5.0); ANION GAP 6 (8-16); BILIRUBIN,TOTAL 1.7 mg/dl (0.2-1.0); CALCIUM 7.9 mg/dl (8.4-10.2); CHLORIDE 106 mmol/L (98-107); CO2 22 mmol/L (22-28); LIPASE 114 U/L (22-51); MAGNESIUM 1.9 mg/dL (1.8-2.4); POTASSIUM 3.6 mmol/L (3.5-5.1); SGOT/AST 25 U/L (10-42); SGPT/ALT 21 U/L (10-40)
[2017-11-04 11:32] LABS: ALK PHOS 44 U/L (32-92)
[2017-11-04 11:36] LABS: TOT PROT 4.8 g/dl (6.4-8.3)
[2017-11-04 11:37] LABS: HEMATOCRIT 34.3 % (35.4-49); HEMOGLOBIN 11.4 GM/dl (11.7-16.9); MCH 29.6 pg (25.7-33.7); MCHC 33.1 g/dl (32.0-35.9); MEAN CELL VOLUME 89.4 fl (80-96); MEAN PLT VOLUME 6.8 fl (7.5-11.1); PLATELET COUNT 340 K/MM3 (134-434); RBC 3.84 M/mm3 (4.00-5.60); RDW 13.1 % (11.9-15.9); WHITE BLOOD COUNT 11.5 K/mm3 (4.0-10.8)
[2017-11-04 11:38] LABS: BASO % 0.3 % (0-2.0); EOS % 1.7 % (0-4.5); LYMPH % 10.2 % (8-40); MONO % 7.7 % (3.8-10.2); NEUT % 80.1 % (42.8-82.8)
[2017-11-04] MEDS ORDERED: SODIUM CHLORIDE 0.9%/KCL 20 MEQ/1,000 ML INFUS.BAG IV SCH ×2 (11:45)
--- NOTE | 2017-11-04 14:00 | PN ---
Progress Note (short form) - Note Progress Note: covering for dr thompson records reviewed- he's improving clinically taking liquids no nausea but still having pains and requires morphine labs scanned Current Medications Acetaminophen (Tylenol -) 650 mg PO Q4H PRN PRN Reason: FEVER OR PAIN Heparin Sodium (Porcine) (Heparin -) 5,000 unit SQ BID CINDY Last Admin: 11/04/17 10:22 Dose: 5,000 unit Potassium Chloride/Sodium Chloride (Ns+20 Meq Kcl -) 20 meq in 1,000 mls @ 125 mls/hr IV ASDIR CINDY Stop: 11/04/17 19:45 Sodium Chloride (Normal Saline -) 1,000 mls @ 150 mls/hr IV ASDIR CINDY Morphine Sulfate (Morphine Sulfate) 4 mg IVPUSH Q6H PRN PRN Reason: PAIN LEVEL 6-10 Last Admin: 11/04/17 12:24 Dose: 4 mg Nicotine (Nicoderm Patch -) 14 mg TD DAILY [facility] Last Admin: 11/04/17 10:23 Dose: 14 mg Ondansetron HCl (Zofran Injection) 4 mg IVPUSH Q8H PRN PRN Reason: NAUSEA Pantoprazole Sodium (Protonix Iv) 40 mg IVPUSH DAILY [facility] Last Admin: 11/04/17 10:25 Dose: 40 mg Zolpidem Tartrate (Ambien -) 10 mg PO HS PRN PRN Reason: INSOMNIA Last Vital Signs Temp Pulse Resp BP Pulse Ox 97.9 F 79 16 131/72 96 11/04/17 06:00 11/04/17 06:00 11/04/17 08:53 11/04/17 06:00 11/04/17 08:53 lungs clear heart reg not tachy abd soft ext no edema CBC, BMP 11/04/17 06:45 11/04/17 06:45 IMP- s/p tristin- improved acute pancreatitis evidence of chronic pancreatitis on abd ct dm underlying ckd stage 2 Plan- will decrease IVF to ns + kcl at 75 cc/hour
[2017-11-04 14:18] LABS: AMYLASE 616 U/L (25-125)
[2017-11-04] MEDS ORDERED: SODIUM CHLORIDE 1,000 ML IV SCH (19:45)
[2017-11-04] MEDS: SODIUM CHLORIDE 0.9%/KCL 20 MEQ/1,000 ML INFUS.BAG IV SCH (21:20)
[2017-11-05] MEDS: morphine SULFATE 4 MG/ML VIAL IVPUSH PRN ×2 (00:12→06:44)
[2017-11-05 09:06] LABS: BASO % 0.4 % (0-2.0); EOS % 2.9 % (0-4.5); HEMATOCRIT 33.7 % (35.4-49); LYMPH % 12.8 % (8-40); MCH 29.4 pg (25.7-33.7); MCHC 32.7 g/dl (32.0-35.9); MEAN CELL VOLUME 89.9 fl (80-96); MEAN PLT VOLUME 6.8 fl (7.5-11.1); MONO % 8.1 % (3.8-10.2); NEUT % 75.8 % (42.8-82.8); PLATELET COUNT 279 K/MM3 (134-434); RBC 3.75 M/mm3 (4.00-5.60); RDW 13.1 % (11.9-15.9); WHITE BLOOD COUNT 8.7 K/mm3 (4.0-10.8)
[2017-11-05] MEDS: NICOTINE 14 MG/24 HOURS TOPICAL PATCH TD SCH (09:29)
[2017-11-05] MEDS: HEPARIN NA (PORCINE) 5,000 UNITS/ML 1ML VIAL SQ SCH ×2 (09:29→21:23)
[2017-11-05] MEDS: PANTOPRAZOLE SODIUM 40 MG VIAL IVPUSH SCH (09:29)
[2017-11-05 09:47] LABS: ALBUMIN 2.5 g/dl (3.5-5.0); ALK PHOS 45 U/L (32-92); ANION GAP 10 (8-16); BILIRUBIN,TOTAL 3.2 mg/dl (0.2-1.0); BLOOD UREA NITROGEN 16 mg/dl (7-18); CALCIUM 8.1 mg/dl (8.4-10.2); CHLORIDE 107 mmol/L (98-107); CO2 19 mmol/L (22-28); GLUCOSE,RANDOM 72 mg/dl (74-106); LIPASE 44 U/L (22-51); POTASSIUM 3.7 mmol/L (3.5-5.1); SGOT/AST 24 U/L (10-42); SGPT/ALT 20 U/L (10-40); SODIUM 136 mmol/L (136-145); TOT PROT 5.1 g/dl (6.4-8.3)
--- NOTE | 2017-11-05 11:28 | PN ---
Physical Exam: SUBJECTIVE: Patient seen and examined at bedside. Feels hungry. OBJECTIVE: Vital Signs Period Temp Pulse Resp BP Sys/Clement Pulse Ox Last 24 Hr 98.2 F-99.1 F 70-94 18-18 116-151/60-83 96-99 GENERAL: The patient is awake, alert, and fully oriented, in no acute distress. LUNGS: Breath sounds equal, clear to auscultation bilaterally, no wheezes, no crackles, no accessory muscle use. HEART: Regular rate and rhythm, S1, S2 without murmur, rub or gallop. ABDOMEN: Soft, +tenderness over epigastrum, normoactive bowel sounds : mild testicular swelling and swelling over the pubis; no erythema, no warmth EXTREMITIES: 2+ pulses, warm, well-perfused, no edema. NEUROLOGICAL: Cranial nerves II through XII grossly intact. Normal speech, moves all extremities freely Laboratory Results - last 24 hr 11/04/17 11/04/17 11/04/17 06:15 06:45 06:45 WBC 8.7 D 11.5 H D RBC 3.75 L 3.84 L Hgb 11.0 L D 11.4 L Hct 33.7 L 34.3 L MCV 89.9 89.4 MCH 29.4 29.6 MCHC 32.7 33.1 RDW 13.1 13.1 Plt Count 279 D 340 D MPV 6.8 L 6.8 L Neutrophils % 75.8 80.1 Lymphocytes % 12.8 D 10.2 D Monocytes % 8.1 7.7 Eosinophils % 2.9 D 1.7 Basophils % 0.4 0.3 Sodium 134 L Potassium 3.6 Chloride 106 Carbon Dioxide 22 Anion Gap 6 L BUN 21 H D Creatinine 1.3 D Creat Clearance w eGFR 57.53 Random Glucose 62 L D Calcium 7.9 L Magnesium 1.9 D Total Bilirubin 1.7 H D AST 25 ALT 21 D Alkaline Phosphatase 44 Total Protein 4.8 L Albumin 2.6 L Total Amylase 616 H* D Lipase 114 H 11/05/17 06:15 WBC RBC Hgb Hct MCV MCH MCHC RDW Plt Count MPV Neutrophils % Lymphocytes % Monocytes % Eosinophils % Basophils % Sodium 136 Potassium 3.7 Chloride 107 Carbon Dioxide 19 L Anion Gap 10 BUN 16 D Creatinine 1.0 D Creat Clearance w eGFR > 60 Random Glucose 72 L Calcium 8.1 L Magnesium Total Bilirubin 3.2 H D AST 24 ALT 20 Alkaline Phosphatase 45 Total Protein 5.1 L Albumin 2.5 L Total Amylase Lipase 44 Active Medications Generic Name Dose Route Start Last Admin Trade Name Sebastian PRN Reason Stop Dose Admin Acetaminophen 650 mg 11/02/17 13:10 Tylenol - PO Q4H PRN FEVER OR PAIN Heparin Sodium (Porcine) 5,000 unit 11/02/17 22:00 11/05/17 09:29 Heparin - SQ 5,000 unit BID CINDY Administration Potassium Chloride/Sodium Chloride 20 meq in 1,000 mls @ 75 mls/hr 11/04/17 21 :00 11/04/17 21:20 Ns+20 Meq Kcl - IV 75 mls/hr ASDIR CINDY Administration Morphine Sulfate 4 mg 11/02/17 14:48 11/05/17 06:44 Morphine Sulfate IVPUSH 4 mg Q6H PRN Administration PAIN LEVEL 6-10 Nicotine 14 mg 11/02/17 14:45 11/05/17 09:29 Nicoderm Patch - TD 14 mg DAILY CINDY Administration Ondansetron HCl 4 mg 11/02/17 15:05 Zofran Injection IVPUSH Q8H PRN NAUSEA Pantoprazole Sodium 40 mg 11/03/17 10:00 11/05/17 09:29 Protonix Iv IVPUSH 40 mg DAILY CINDY Administration Zolpidem Tartrate 10 mg 11/02/17 13:01 Ambien - PO HS PRN INSOMNIA ASSESSMENT/PLAN: 52 year-old male with a PMH significant for chronic pancreatitis, cholelithiasis , duodenitis, diverticulitis, and BPH. Admitted for acute on chronic pancreatitis. Acute pancreatitis --gallstone v. alcohol v. ductal abnormality --bili continues to rise 1.7-->3.2, alk phos and transaminases wnl --lipase 660-->44 --still with epigastric tenderness on exam, active bowel sounds, agreeable to switching from morphine to PO pain meds --repeat CT tomorrow PETER, resolved --Cr peak 1.8, today 1.0 --no hydro on US Lower pelvis ascites Testicular swelling --again complains testicles appear swollen and penis appears smaller --small amount of ascites seen in pelvis on US --possibly dependent edema from IV fluids and being in bed --will get US scrotum --encouraged oob, ambulation FEN Fluids: NS+20K @ 75mL/hr Electrolytes: replete as indicated Nutrition: advance diet very slowly; trial of full liquids for lunch DVT prophylaxis: subq heparin Dispo: continues to require inpatient care Visit type - Emergency Visit Emergency Visit: Yes ED Registration Date: 11/02/17 Care time: The patient presented to the Emergency Department on the above date and was hospitalized for further evaluation of their emergent condition. - New Patient This patient is new to me today: Yes Date on this admission: 11/05/17 - Critical Care Critical Care patient: No
[2017-11-05] MEDS: oxyCODONE HCL 5 MG TABLET PO PRN ×2 (12:45→20:05)
--- NOTE | 2017-11-05 16:05 | PN ---
Progress Note, Physician History of Present Illness: Pt seen and examined at bedside. He says that he feels better. He denies dysuria or hematuria. - Current Medication List Current Medications: Active Medications Acetaminophen (Tylenol -) 650 mg PO Q4H PRN PRN Reason: FEVER OR PAIN Heparin Sodium (Porcine) (Heparin -) 5,000 unit SQ BID [facility] Last Admin: 11/05/17 09:29 Dose: 5,000 unit Potassium Chloride/Sodium Chloride (Ns+20 Meq Kcl -) 20 meq in 1,000 mls @ 75 mls/hr IV ASDIR [facility] Last Admin: 11/04/17 21:20 Dose: 75 mls/hr Nicotine (Nicoderm Patch -) 14 mg TD DAILY [facility] Last Admin: 11/05/17 09:29 Dose: 14 mg Ondansetron HCl (Zofran Injection) 4 mg IVPUSH Q8H PRN PRN Reason: NAUSEA Oxycodone HCl (Roxicodone -) 5 mg PO Q6H PRN PRN Reason: PAIN Last Admin: 11/05/17 12:45 Dose: 5 mg Pantoprazole Sodium (Protonix Iv) 40 mg IVPUSH DAILY [facility] Last Admin: 11/05/17 09:29 Dose: 40 mg - Objective Vital Signs: Vital Signs Temperature 98.6 F 11/05/17 14:18 Pulse Rate 71 11/05/17 14:18 Respiratory Rate 18 11/05/17 14:18 Blood Pressure 113/64 11/05/17 14:18 O2 Sat by Pulse Oximetry (%) 99 11/05/17 14:18 Constitutional: Yes: Calm Eyes: Yes: Conjunctiva Clear HENT: Yes: Atraumatic Cardiovascular: Yes: S1, S2 Respiratory: Yes: CTA Bilaterally Gastrointestinal: Yes: Soft Genitourinary: Yes: WNL Musculoskeletal: Yes: WNL Extremities: Yes: WNL Edema: No Integumentary: Yes: Tattoos Neurological: Yes: Oriented Psychiatric: Yes: Oriented Labs: CBC, BMP 11/04/17 06:45 11/05/17 06:15 Problem List - Problems (1) Acute pancreatitis Code(s): K85.90 - ACUTE PANCREATITIS WITHOUT NECROSIS OR INFECTION, UNSP Qualifiers: Pancreatitis type: unspecified pancreatitis type Acute pancreatitis complication: unspecified Qualified Code(s): K85.90 - Acute pancreatitis without necrosis or infection, unspecified (2) Abdominal pain Code(s): R10.9 - UNSPECIFIED ABDOMINAL PAIN Qualifiers: Abdominal location: unspecified location Qualified Code(s): R10.9 - Unspecified abdominal pain (3) Renal insufficiency Code(s): N28.9 - DISORDER OF KIDNEY AND URETER, UNSPECIFIED Assessment/Plan Current Medications Generic Name Dose Route Start Last Admin Trade Name Freq PRN Reason Stop Dose Admin Acetaminophen 650 mg 11/02/17 13:10 Tylenol - PO Q4H PRN FEVER OR PAIN Heparin Sodium (Porcine) 5,000 unit 11/02/17 22:00 11/05/17 09:29 Heparin - SQ 5,000 unit BID CINDY Administration Potassium Chloride/Sodium Chloride 20 meq in 1,000 mls @ 75 mls/hr 11/04/17 21 :00 11/04/17 21:20 Ns+20 Meq Kcl - IV 75 mls/hr ASDIR CINDY Administration Nicotine 14 mg 11/02/17 14:45 11/05/17 09:29 Nicoderm Patch - TD 14 mg DAILY CINDY Administration Ondansetron HCl 4 mg 11/02/17 15:05 Zofran Injection IVPUSH Q8H PRN NAUSEA Oxycodone HCl 5 mg 11/05/17 11:38 11/05/17 12:45 Roxicodone - PO 5 mg Q6H PRN Administration PAIN Pantoprazole Sodium 40 mg 11/03/17 10:00 11/05/17 09:29 Protonix Iv IVPUSH 40 mg DAILY CINDY Administration Impression 1. PETER resolving 2. pancreatitis 3. hx DM 4. 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
[2017-11-05] MEDS: SODIUM CHLORIDE 0.9%/KCL 20 MEQ/1,000 ML INFUS.BAG IV SCH (21:23)
[2017-11-06] MEDS: oxyCODONE HCL 5 MG TABLET PO PRN ×3 (05:20→19:41)
--- NOTE | 2017-11-06 08:13 | PN ---
Physical Exam: SUBJECTIVE: Patient seen and examined, reports feeling bloated, reports feeling hungry. OBJECTIVE: Patient is a 52 y/o male with a past medical history of diverticulitis, cholelithasis, chronic pancreatitis, chronic back pain, duedonitis, and BPH. Patient was admitted from the emergency department for acute pancreatits. Vital Signs Period Temp Pulse Resp BP Sys/Clement Pulse Ox Last 24 Hr 97.8 F-98.6 F 55-71 18-18 113-129/64-66 99-100 GENERAL: The patient is awake, alert, and fully oriented, in no acute distress. HEAD: Normal with no signs of trauma. EYES: PERRL, extraocular movements intact, sclera icteric, conjunctiva clear. No ptosis. ENT: Ears normal, nares patent, oropharynx clear without exudates, moist mucous membranes. NECK: Trachea midline, full range of motion, supple. LUNGS: Breath sounds equal, clear to auscultation bilaterally, no wheezes, no crackles, no accessory muscle use. HEART: Regular rate and rhythm, S1, S2 without murmur, rub or gallop. ABDOMEN: Soft, nontender, nondistended, normoactive bowel sounds, no guarding, no rebound, + hepatosplenomegaly, no masses. EXTREMITIES: 2+ pulses, warm, well-perfused, no edema. NEUROLOGICAL: Cranial nerves II through XII grossly intact. Normal speech, gait not observed. PSYCH: Normal mood, normal affect. SKIN: jaundice, Warm, dry, normal turgor, no rashes or lesions noted Laboratory Results - last 24 hr CBC WBC 5.1 K/mm3 (4.0-10.8) D 11/06/17 07:45 RBC 3.73 M/mm3 (4.00-5.60) L 11/06/17 07:45 Hgb 10.8 GM/dl (11.7-16.9) L 11/06/17 07:45 Hct 32.9 % (35.4-49) L 11/06/17 07:45 MCV 88.2 fl (80-96) 11/06/17 07:45 MCH 28.8 pg (25.7-33.7) 11/06/17 07:45 MCHC 32.7 g/dl (32.0-35.9) 11/06/17 07:45 RDW 13.1 % (11.9-15.9) 11/06/17 07:45 Plt Count 322 K/MM3 (134-434) 11/06/17 07:45 MPV 7.2 fl (7.5-11.1) L 11/06/17 07:45 Neutrophils % 73.0 % (42.8-82.8) 11/06/17 07:45 Lymphocytes % 15.9 % (8-40) D 11/06/17 07:45 Monocytes % 7.3 % (3.8-10.2) 11/06/17 07:45 Eosinophils % 3.4 % (0-4.5) D 11/06/17 07:45 Basophils % 0.4 % (0-2.0) 11/06/17 07:45 CMP Sodium 135 mmol/L (136-145) L 11/06/17 07:45 Potassium 4.2 mmol/L (3.5-5.1) 11/06/17 07:45 Chloride 106 mmol/L (98-107) 11/06/17 07:45 Carbon Dioxide 23 mmol/L (22-28) D 11/06/17 07:45 Anion Gap 6 (8-16) L 11/06/17 07:45 BUN 15 mg/dl (7-18) 11/06/17 07:45 Creatinine 0.9 mg/dl (0.6-1.3) 11/06/17 07:45 Creat Clearance w eGFR > 60 (>60) 11/06/17 07:45 POC Glucometer 110 UNITS (80-120) 11/06/17 11:03 Random Glucose 148 mg/dl (74-106) H D 11/06/17 07:45 Hemoglobin A1c % 8.7 % (4.8-6.0) H 11/03/17 07:15 Calcium 8.3 mg/dl (8.4-10.2) L 11/06/17 07:45 Phosphorus 2.1 mg/dl (2.5-4.6) L D 11/06/17 07:00 Magnesium 1.8 mg/dL (1.8-2.4) 11/06/17 07:00 Total Bilirubin 5.8 mg/dl (0.2-1.0) H D 11/06/17 07:45 AST 101 U/L (10-42) H D 11/06/17 07:45 ALT 66 U/L (10-40) H D 11/06/17 07:45 Alkaline Phosphatase 159 U/L (32-92) H D 11/06/17 07:45 Creatine Kinase 42 IU/L (39-308) 11/02/17 07:00 Troponin I < 0.03 ng/ml (0.03-0.50) L 11/02/17 07:00 Total Protein 4.9 g/dl (6.4-8.3) L 11/06/17 07:45 Albumin 2.3 g/dl (3.5-5.0) L 11/06/17 07:45 Triglycerides 326 mg/dl (35-160) H D 11/06/17 07:45 Cholesterol 102 mg/dl 11/06/17 07:45 Total LDL Cholesterol 30 mg/dl 11/06/17 07:45 HDL Cholesterol < 7 mg/dl (29-89) L D 11/06/17 07:45 Total Amylase 107 U/L (25-125) D 11/06/17 07:45 Lipase 35 U/L (22-51) 11/06/17 07:45 Active Medications Generic Name Dose Route Start Last Admin Trade Name Freq PRN Reason Stop Dose Admin Acetaminophen 650 mg 11/02/17 13:10 Tylenol - PO Q4H PRN FEVER OR PAIN Heparin Sodium (Porcine) 5,000 unit 11/02/17 22:00 11/05/17 21:23 Heparin - SQ 5,000 unit BID CINDY Administration Potassium Chloride/Sodium Chloride 20 meq in 1,000 mls @ 75 mls/hr 11/04/17 21 :00 11/05/17 21:23 Ns+20 Meq Kcl - IV 75 mls/hr ASDIR CINDY Administration Nicotine 14 mg 11/02/17 14:45 11/05/17 09:29 Nicoderm Patch - TD 14 mg DAILY CINDY Administration Ondansetron HCl 4 mg 11/02/17 15:05 Zofran Injection IVPUSH Q8H PRN NAUSEA Oxycodone HCl 5 mg 11/05/17 11:38 11/06/17 05:20 Roxicodone - PO 5 mg Q6H PRN Administration PAIN Pantoprazole Sodium 40 mg 11/03/17 10:00 11/05/17 09:29 Protonix Iv IVPUSH 40 mg DAILY CINDY Administration Microbiology 11/02/17 16:36 Blood - Peripheral Venous Blood Culture - Preliminary NO GROWTH OBTAINED AFTER 72 HOURS, INCUBATION TO CONTINUE FOR 2 DAYS. 11/02/17 16:35 Blood - Peripheral Venous Blood Culture - Preliminary NO GROWTH OBTAINED AFTER 72 HOURS, INCUBATION TO CONTINUE FOR 2 DAYS. 11/02/17 15:00 Urine - Urine Clean Catch Urine Culture - Final NO GROWTH OBTAINED IMAGING ct of abd/pelvis w/iv and po contrast: (11/06/16) resulted as cholelithasis, moderate distention of gallbladder, cannot exclude cholelithasis, heptaomegly mrcp (11/02/17) cholelithasis, no definive choleductholithasis, acute pancretitis, pseudocyst, 1.1cm spherical fluid structure of right ventral aspect of pancreatic head ultrasound of kidney/bladder: no hydronephrosis noted ultrasound of scrotum: diffuse skin thickening and scrotal edema ASSESSMENT/PLAN: 1) GI Acute pancreatitis -etiology gallstone vs alcohol vs ductal abnormality - lipase WNL, AST/ALT significantly increased, t bili 5.8, jaundice appearing, hepatitis panel ordered, discussed with Dr Wolff, GI, pt will require ERCP. - Dr Saini, surgery consulted and following. 2) endo NIDDM - hgb a1c 8.7, start fingersticks achs with regular insulin coverage 3) neph tristin - resolved, creatine 0.9 FEN Fluids: po fluids Electrolytes: replete as indicated Nutrition: full liquids DVT prophylaxis: subq heparin Dispo: continues to require inpatient care transfer to [facility] for an ERCP Problem List - Problems (1) Acute pancreatitis Code(s): K85.90 - ACUTE PANCREATITIS WITHOUT NECROSIS OR INFECTION, UNSP Qualifiers: Pancreatitis type: unspecified pancreatitis type Acute pancreatitis complication: unspecified Qualified Code(s): K85.90 - Acute pancreatitis without necrosis or infection, unspecified (2) Cholelithiasis Code(s): K80.20 - CALCULUS OF GALLBLADDER W/O CHOLECYSTITIS W/O OBSTRUCTION Qualifiers: Cholecystitis presence: without cholecystitis (3) Diabetes mellitus Code(s): E11.9 - TYPE 2 DIABETES MELLITUS WITHOUT COMPLICATIONS (4) Hyperlipidemia Code(s): E78.5 - HYPERLIPIDEMIA, UNSPECIFIED (5) Renal insufficiency Code(s): N28.9 - DISORDER OF KIDNEY AND URETER, UNSPECIFIED Visit type - Emergency Visit Emergency Visit: Yes ED Registration Date: 11/02/17 Care time: The patient presented to the Emergency Department on the above date and was hospitalized for further evaluation of their emergent condition. - New Patient This patient is new to me today: No - Critical Care Critical Care patient: No - Discharge Referral Referred to [facility] Med [facility] No
[2017-11-06 08:20] LABS: BASO % 0.4 % (0-2.0); EOS % 3.4 % (0-4.5); HEMATOCRIT 32.9 % (35.4-49); HEMOGLOBIN 10.8 GM/dl (11.7-16.9); LYMPH % 15.9 % (8-40); MCH 28.8 pg (25.7-33.7); MCHC 32.7 g/dl (32.0-35.9); MEAN CELL VOLUME 88.2 fl (80-96); MEAN PLT VOLUME 7.2 fl (7.5-11.1); MONO % 7.3 % (3.8-10.2); PLATELET COUNT 322 K/MM3 (134-434); RBC 3.73 M/mm3 (4.00-5.60); RDW 13.1 % (11.9-15.9); WHITE BLOOD COUNT 5.1 K/mm3 (4.0-10.8)
[2017-11-06 08:44] LABS: INR 1.14 (0.82-1.09); PROTHROMBIN TIME (PATIENT) 12.7 SEC (10.2-13.0)
[2017-11-06 08:50] LABS: ALBUMIN 2.3 g/dl (3.5-5.0); ALK PHOS 159 U/L (32-92); AMYLASE 107 U/L (25-125); ANION GAP 6 (8-16); BILIRUBIN,TOTAL 5.8 mg/dl (0.2-1.0); BLOOD UREA NITROGEN 15 mg/dl (7-18); CALCIUM 8.3 mg/dl (8.4-10.2); CHLORIDE 106 mmol/L (98-107); CHOLESTEROL 102 mg/dl; CO2 23 mmol/L (22-28); CREATININE 0.9 mg/dl (0.6-1.3); GLUCOSE,RANDOM 148 mg/dl (74-106); LIPASE 35 U/L (22-51); POTASSIUM 4.2 mmol/L (3.5-5.1); SGOT/AST 101 U/L (10-42); SGPT/ALT 66 U/L (10-40); SODIUM 135 mmol/L (136-145); TOT PROT 4.9 g/dl (6.4-8.3); TRIGLYCERIDES 326 mg/dl (35-160)
[2017-11-06 08:53] LABS: MAGNESIUM 1.8 mg/dL (1.8-2.4); PHOSPHOROUS 2.1 mg/dl (2.5-4.6)
[2017-11-06] MEDS ORDERED: MAGNESIUM SULFATE 2 GM in SODIUM CHLORIDE 100 ML IVPB ONE (09:09)
[2017-11-06 09:13] LABS: HDL CHOLESTEROL < 7 mg/dl (29-89); LDL CHOLESTEROL (ONLY DFH) 30 mg/dl
[2017-11-06] MEDS: PANTOPRAZOLE SODIUM 40 MG VIAL IVPUSH SCH (09:16)
[2017-11-06] MEDS: NICOTINE 14 MG/24 HOURS TOPICAL PATCH TD SCH (09:16)
[2017-11-06] MEDS: HEPARIN NA (PORCINE) 5,000 UNITS/ML 1ML VIAL SQ SCH ×2 (09:16→21:47)
[2017-11-06] MEDS ORDERED: MAGNESIUM SULF 50% (8.12 MEQ/2 ML-1 GM VIAL) IVPB ONE (09:30)
--- NOTE | 2017-11-06 09:48 | PN ---
Progress Note (short form) - Note Progress Note: Attending Surgeon Seen in f/u No c/o VSS AF abdomen-soft; flat and non tender WBC and amylase and lipase wnl; bili and LFT's are again elevated IMP: gallstone pancreatitis vs. etoH pacreatitis PLAN: continue present tx. ;repeat CT scan a./p ?? ERCP ? Manav Saini MD FACS
[2017-11-06] MEDS: INSULIN SLIDING SCALE (NOVOLOG) 1 VIAL SQ SCH ×3 (11:11→21:46)
[2017-11-06] MEDS: LEVOFLOXACIN 500 MG IVPB 500 MG/100 ML BAG IVPB SCH (14:30)
[2017-11-06] MEDS: METRONIDAZOLE 500 MG PREMIXED 500 MG/100 ML MG IVPB SCH ×2 (16:33→17:24)
--- NOTE | 2017-11-06 16:58 | PN ---
Progress Note, Physician History of Present Illness: No events. CT, US results noted. Cholestasis. - Current Medication List Current Medications: Active Medications Acetaminophen (Tylenol -) 650 mg PO Q4H PRN PRN Reason: FEVER OR PAIN Heparin Sodium (Porcine) (Heparin -) 5,000 unit SQ BID [facility] Last Admin: 11/06/17 09:16 Dose: 5,000 unit Potassium Chloride/Sodium Chloride (Ns+20 Meq Kcl -) 20 meq in 1,000 mls @ 75 mls/hr IV ASDIR [facility] Last Admin: 11/05/17 21:23 Dose: 75 mls/hr Levofloxacin (Levaquin 500 Mg Premixed Ivpb -) 500 mg in 100 mls @ 100 mls/hr IVPB DAILY [facility] Last Admin: 11/06/17 14:30 Dose: 100 mls/hr Metronidazole (Flagyl 500mg Premixed Ivpb -) 500 mg in 100 mls @ 100 mls/hr IVPB Q8H-IV [facility] Last Admin: 11/06/17 16:33 Dose: 100 mls/hr Insulin Aspart (Novolog Vial Sliding Scale -) 1 vial SQ ACHS [facility] PRN Reason: Protocol Last Admin: 11/06/17 16:43 Dose: Not Given Nicotine (Nicoderm Patch -) 14 mg TD DAILY [facility] Last Admin: 11/06/17 09:16 Dose: 14 mg Ondansetron HCl (Zofran Injection) 4 mg IVPUSH Q8H PRN PRN Reason: NAUSEA Oxycodone HCl (Roxicodone -) 5 mg PO Q6H PRN PRN Reason: PAIN Last Admin: 11/06/17 12:50 Dose: 5 mg Pantoprazole Sodium (Protonix Iv) 40 mg IVPUSH DAILY [facility] Last Admin: 11/06/17 09:16 Dose: 40 mg - Objective Vital Signs: Vital Signs Temperature 98.3 F 11/06/17 14:11 Pulse Rate 55 L 11/06/17 14:11 Respiratory Rate 18 11/06/17 14:11 Blood Pressure 133/68 11/06/17 14:11 O2 Sat by Pulse Oximetry (%) 98 11/06/17 14:11 Constitutional: Yes: No Distress Labs: CBC, BMP 11/06/17 07:45 11/06/17 07:45 INR, PTT INR 1.14 (0.82-1.09) 11/06/17 07:45 Laboratory Results - last 24 hr 11/06/17 11/06/17 11/06/17 07:00 07:45 07:45 WBC 5.1 D RBC 3.73 L Hgb 10.8 L Hct 32.9 L MCV 88.2 MCH 28.8 MCHC 32.7 RDW 13.1 Plt Count 322 MPV 7.2 L Neutrophils % 73.0 Lymphocytes % 15.9 D Monocytes % 7.3 Eosinophils % 3.4 D Basophils % 0.4 PT with INR INR Sodium 135 L Potassium 4.2 Chloride 106 Carbon Dioxide 23 D Anion Gap 6 L BUN 15 Creatinine 0.9 Creat Clearance w eGFR > 60 POC Glucometer Random Glucose 148 H D Calcium 8.3 L Phosphorus 2.1 L D Magnesium 1.8 Total Bilirubin 5.8 H D AST 101 H D ALT 66 H D Alkaline Phosphatase 159 H D Total Protein 4.9 L Albumin 2.3 L Triglycerides 326 H D Cholesterol 102 Total LDL Cholesterol 30 HDL Cholesterol < 7 L D Total Amylase 107 D Lipase 35 11/06/17 11/06/17 07:45 11:03 WBC RBC Hgb Hct MCV MCH MCHC RDW Plt Count MPV Neutrophils % Lymphocytes % Monocytes % Eosinophils % Basophils % PT with INR 12.7 INR 1.14 Sodium Potassium Chloride Carbon Dioxide Anion Gap BUN Creatinine Creat Clearance w eGFR POC Glucometer 110 Random Glucose Calcium Phosphorus Magnesium Total Bilirubin AST ALT Alkaline Phosphatase Total Protein Albumin Triglycerides Cholesterol Total LDL Cholesterol HDL Cholesterol Total Amylase Lipase Problem List - Problems (1) Acute pancreatitis Code(s): K85.90 - ACUTE PANCREATITIS WITHOUT NECROSIS OR INFECTION, UNSP Qualifiers: Pancreatitis type: unspecified pancreatitis type Acute pancreatitis complication: unspecified Qualified Code(s): K85.90 - Acute pancreatitis without necrosis or infection, unspecified (2) Abdominal pain Code(s): R10.9 - UNSPECIFIED ABDOMINAL PAIN Qualifiers: Abdominal location: unspecified location Qualified Code(s): R10.9 - Unspecified abdominal pain (3) Cholelithiasis Code(s): K80.20 - CALCULUS OF GALLBLADDER W/O CHOLECYSTITIS W/O OBSTRUCTION Qualifiers: Cholecystitis presence: without cholecystitis (4) Smoking greater than 30 pack years Code(s): F17.210 - NICOTINE DEPENDENCE, CIGARETTES, UNCOMPLICATED (5) Hyperlipidemia Code(s): E78.5 - HYPERLIPIDEMIA, UNSPECIFIED Assessment/Plan worsening over the weekend cholestasis. ?Choledocolithiasis, ?pancreatitis- related, ?other Restart Abx WBC, lipase today normal. CT showes pancreatitis Repeat MRCP w and w/o contrast Close monitoring. Transfer to [facility] for possible ERCP
[2017-11-06] MEDS: METRONIDAZOLE PREMIXED IVPB 250 MG/50 ML MG IVPB SCH (18:33)
[2017-11-06] MEDS: SODIUM CHLORIDE 0.9%/KCL 20 MEQ/1,000 ML INFUS.BAG IV SCH ×2 (19:43→21:47)
[2017-11-06] MEDS ORDERED: morphine CARPU-JECT 10 MG/1 ML DISP.SYRIN IVPUSH ONE (21:19)
[2017-11-06] MEDS ORDERED: INSULIN (NOVOLOG) ASPART 100 UNITS/ML 10ML VIAL ONE (21:23)
[2017-11-07] MEDS: METRONIDAZOLE 500 MG PREMIXED 500 MG/100 ML MG IVPB SCH ×3 (02:30→18:09)
[2017-11-07] MEDS ORDERED: morphine CARPU-JECT 10 MG/1 ML DISP.SYRIN IVPUSH ONE ×2 (02:42→08:43)
[2017-11-07] MEDS: INSULIN SLIDING SCALE (NOVOLOG) 1 VIAL SQ SCH ×4 (06:54→23:03)
[2017-11-07 08:02] LABS: BASO % 0.7 % (0-2.0); HEMOGLOBIN 10.7 GM/dL (11.7-16.9); MCH 29.5 pg (25.7-33.7); MCHC 33.6 g/dl (32.0-35.9); MEAN CELL VOLUME 87.8 fl (80-96); MEAN PLT VOLUME 7.4 fl (7.5-11.1); MONO % 8.4 % (3.8-10.2); NEUT % 65.9 % (42.8-82.8); PLATELET COUNT 313 K/MM3 (134-434); RBC 3.64 M/mm3 (4.00-5.60); RDW 14.4 % (11.9-15.9); WHITE BLOOD COUNT 6.1 K/mm3 (4.0-10.0)
[2017-11-07 08:33] LABS: ALBUMIN 2.3 g/dl (3.4-5.0); ANION GAP 11 (8-16); BLOOD UREA NITROGEN 11 mg/dL (7-18); CALCIUM 8.1 mg/dL (8.5-10.1); CHLORIDE 106 mmol/L (98-107); CO2 22 mmol/L (21-32); CREATININE 0.9 mg/dL (0.7-1.3); GLUCOSE,RANDOM 99 mg/dL (74-106); MAGNESIUM 1.9 mg/dL (1.8-2.4); PHOSPHOROUS 2.7 mg/dL (2.5-4.9); POTASSIUM 4.3 mmol/L (3.5-5.1); SGOT/AST 68 U/L (15-37); SGPT/ALT 78 U/L (12-78); SODIUM 139 mmol/L (136-145)
[2017-11-07 08:35] LABS: ALK PHOS 196 U/L (45-117); BILIRUBIN,TOTAL 3.4 mg/dL (0.2-1.0)
--- NOTE | 2017-11-07 09:11 | PN ---
Progress Note, Physician History of Present Illness: No events. CT, US results noted. Cholestasis. C/o epigatric pain. Afebrile, mildly icteric - Current Medication List Current Medications: Active Medications Acetaminophen (Tylenol -) 650 mg PO Q4H PRN PRN Reason: FEVER OR PAIN Heparin Sodium (Porcine) (Heparin -) 5,000 unit SQ BID [facility] Last Admin: 11/06/17 21:47 Dose: 5,000 unit Potassium Chloride/Sodium Chloride (Ns+20 Meq Kcl -) 20 meq in 1,000 mls @ 75 mls/hr IV ASDIR [facility] Last Admin: 11/06/17 21:47 Dose: Not Given Levofloxacin (Levaquin 500 Mg Premixed Ivpb -) 500 mg in 100 mls @ 100 mls/hr IVPB DAILY [facility] Last Admin: 11/06/17 14:30 Dose: 100 mls/hr Metronidazole (Flagyl 500mg Premixed Ivpb -) 500 mg in 100 mls @ 100 mls/hr IVPB Q8H-IV [facility] Last Admin: 11/07/17 02:30 Dose: 100 mls/hr Insulin Aspart (Novolog Vial Sliding Scale -) 1 vial SQ ACHS [facility] PRN Reason: Protocol Last Admin: 11/07/17 06:54 Dose: Not Given Nicotine (Nicoderm Patch -) 14 mg TD DAILY [facility] Last Admin: 11/06/17 09:16 Dose: 14 mg Ondansetron HCl (Zofran Injection) 4 mg IVPUSH Q8H PRN PRN Reason: NAUSEA Oxycodone HCl (Roxicodone -) 5 mg PO Q6H PRN PRN Reason: PAIN Last Admin: 11/06/17 19:41 Dose: 5 mg Pantoprazole Sodium (Protonix Iv) 40 mg IVPUSH DAILY [facility] Last Admin: 11/06/17 09:16 Dose: 40 mg - Objective Vital Signs: Vital Signs Temperature 98.3 F 11/07/17 07:07 Pulse Rate 54 L 11/07/17 07:07 Respiratory Rate 20 11/07/17 07:07 Blood Pressure 132/74 11/07/17 07:07 O2 Sat by Pulse Oximetry (%) 97 11/06/17 21:00 Constitutional: Yes: No Distress, Calm Eyes: Yes: Sclera Icterus Gastrointestinal: Yes: Soft, Tenderness, Tenderness, Epigastrium. No: Ascites, Distention, Rectal Bleeding, Vomiting Neurological: Yes: Alert, Oriented Labs: CBC, BMP 11/07/17 06:00 11/07/17 06:00 INR, PTT INR 1.14 (0.82-1.09) 11/06/17 07:45 Abnormal Lab Results 11/06/17 11/07/17 11/07/17 07:45 06:00 06:00 RBC 3.64 L Hgb 10.7 L Hct 32.0 L MPV 7.4 L Eosinophils % 5.0 H Calcium 8.1 L Total Bilirubin 3.4 H AST 68 H Alkaline Phosphatase 196 H Total Protein 5.0 L Albumin 2.3 L HDL Cholesterol < 7 L D Problem List - Problems (1) Acute pancreatitis Code(s): K85.90 - ACUTE PANCREATITIS WITHOUT NECROSIS OR INFECTION, UNSP Qualifiers: Pancreatitis type: unspecified pancreatitis type Acute pancreatitis complication: unspecified Qualified Code(s): K85.90 - Acute pancreatitis without necrosis or infection, unspecified (2) Abdominal pain Code(s): R10.9 - UNSPECIFIED ABDOMINAL PAIN Qualifiers: Abdominal location: unspecified location Qualified Code(s): R10.9 - Unspecified abdominal pain (3) Cholelithiasis Code(s): K80.20 - CALCULUS OF GALLBLADDER W/O CHOLECYSTITIS W/O OBSTRUCTION Qualifiers: Cholecystitis presence: without cholecystitis (4) Smoking greater than 30 pack years Code(s): F17.210 - NICOTINE DEPENDENCE, CIGARETTES, UNCOMPLICATED (5) Hyperlipidemia Code(s): E78.5 - HYPERLIPIDEMIA, UNSPECIFIED Assessment/Plan bili 3.6 am. ?Choledocolithiasis, ?pancreatitis-related, ?other Abx Restarted 1 day ago Increase IVF to 150 cc/hr Repeat MRCP w and w/o contrast. Close monitoring. discussed with the patient
[2017-11-07 10:11] LABS: HBSAG SCREEN Negative (Negative); HEP B CORE AB, TOT Negative (Negative)
[2017-11-07] MEDS: SODIUM CHLORIDE 0.9%/KCL 20 MEQ/1,000 ML INFUS.BAG IV SCH ×2 (11:12→21:05)
[2017-11-07] MEDS: LEVOFLOXACIN 500 MG IVPB 500 MG/100 ML BAG IVPB SCH (11:13)
[2017-11-07] MEDS: HEPARIN NA (PORCINE) 5,000 UNITS/ML 1ML VIAL SQ SCH ×2 (11:13→22:57)
[2017-11-07] MEDS: PANTOPRAZOLE SODIUM 40 MG VIAL IVPUSH SCH (11:13)
[2017-11-07] MEDS: NICOTINE 14 MG/24 HOURS TOPICAL PATCH TD SCH (11:16)
--- NOTE | 2017-11-07 12:39 | PN ---
Progress Note (short form) - Note Progress Note: Pt seen with Dr. Saini today. Pt with upper abd tenderness. Urine remains dark. Vital Signs Period Temp Pulse Resp BP Sys/Clement Pulse Ox Last 24 Hr 98.3 F-98.5 F 48-61 17-20 129-148/68-80 97-98 GEN: A&0x3, NAD ABD: soft, non-distended, mild upper abd/right upper area. No guarding. CBC, BMP 11/07/17 06:00 11/07/17 06:00 Hepatic Panel Total Bilirubin 3.4 mg/dL (0.2-1.0) H 11/07/17 06:00 AST 68 U/L (15-37) H 11/07/17 06:00 ALT 78 U/L (12-78) 11/07/17 06:00 Alkaline Phosphatase 196 U/L (45-117) H 11/07/17 06:00 Albumin 2.3 g/dl (3.4-5.0) L 11/07/17 06:00 Problem List - Problems (1) Cholelithiasis Assessment/Plan: With gallstone pancreatitis on radiological exams. Lipase within normal limits. Continue npo/iv hydration Plan for repeat MRI/MRCP today Code(s): K80.20 - CALCULUS OF GALLBLADDER W/O CHOLECYSTITIS W/O OBSTRUCTION Qualifiers: Cholecystitis presence: without cholecystitis
[2017-11-07] MEDS ORDERED: morphine CARPU-JECT 2 MG/1 ML DISP.SYRIN IVPUSH PRN (14:06)
[2017-11-07] MEDS: morphine CARPU-JECT 10 MG/1 ML DISP.SYRIN IVPUSH PRN ×3 (15:01→22:58)
--- NOTE | 2017-11-07 17:34 | PN ---
Progress Note, Physician History of Present Illness: Pt seen and examined at bedside. He is awake and alert. He denies abdominal pain. - Current Medication List Current Medications: Active Medications Acetaminophen (Tylenol -) 650 mg PO Q4H PRN PRN Reason: FEVER OR PAIN Heparin Sodium (Porcine) (Heparin -) 5,000 unit SQ BID [facility] Last Admin: 11/07/17 11:13 Dose: 5,000 unit Potassium Chloride/Sodium Chloride (Ns+20 Meq Kcl -) 20 meq in 1,000 mls @ 75 mls/hr IV ASDIR [facility] Last Admin: 11/07/17 11:12 Dose: 75 mls/hr Levofloxacin (Levaquin 500 Mg Premixed Ivpb -) 500 mg in 100 mls @ 100 mls/hr IVPB DAILY [facility] Last Admin: 11/07/17 11:13 Dose: 100 mls/hr Metronidazole (Flagyl 500mg Premixed Ivpb -) 500 mg in 100 mls @ 100 mls/hr IVPB Q8H-IV [facility] Last Admin: 11/07/17 12:41 Dose: 100 mls/hr Insulin Aspart (Novolog Vial Sliding Scale -) 1 vial SQ ACHS CINDY PRN Reason: Protocol Last Admin: 11/07/17 17:26 Dose: Not Given Morphine Sulfate (Morphine Injection -) 2 mg IVPUSH Q4H PRN PRN Reason: PAIN Last Admin: 11/07/17 15:01 Dose: 2 mg Nicotine (Nicoderm Patch -) 14 mg TD DAILY [facility] Last Admin: 11/07/17 11:16 Dose: 14 mg Ondansetron HCl (Zofran Injection) 4 mg IVPUSH Q8H PRN PRN Reason: NAUSEA Oxycodone HCl (Roxicodone -) 5 mg PO Q6H PRN PRN Reason: PAIN Last Admin: 11/06/17 19:41 Dose: 5 mg Pantoprazole Sodium (Protonix Iv) 40 mg IVPUSH DAILY [facility] Last Admin: 11/07/17 11:13 Dose: 40 mg - Objective Vital Signs: Vital Signs Temperature 98.4 F 11/07/17 17:12 Pulse Rate 81 11/07/17 17:12 Respiratory Rate 20 11/07/17 17:12 Blood Pressure 145/81 11/07/17 17:12 O2 Sat by Pulse Oximetry (%) 97 11/06/17 21:00 Constitutional: Yes: Calm Eyes: Yes: Conjunctiva Clear HENT: Yes: Atraumatic Neck: Yes: Supple Cardiovascular: Yes: S1, S2 Respiratory: Yes: CTA Bilaterally Gastrointestinal: Yes: Soft Musculoskeletal: Yes: WNL Extremities: Yes: WNL Edema: No Integumentary: Yes: Tattoos Neurological: Yes: Oriented Psychiatric: Yes: Oriented Labs: CBC, BMP 11/07/17 06:00 11/07/17 06:00 INR, PTT INR 1.14 (0.82-1.09) 11/06/17 07:45 Problem List - Problems (1) Acute pancreatitis Code(s): K85.90 - ACUTE PANCREATITIS WITHOUT NECROSIS OR INFECTION, UNSP Qualifiers: Pancreatitis type: unspecified pancreatitis type Acute pancreatitis complication: unspecified Qualified Code(s): K85.90 - Acute pancreatitis without necrosis or infection, unspecified (2) Abdominal pain Code(s): R10.9 - UNSPECIFIED ABDOMINAL PAIN Qualifiers: Abdominal location: unspecified location Qualified Code(s): R10.9 - Unspecified abdominal pain (3) Renal insufficiency Code(s): N28.9 - DISORDER OF KIDNEY AND URETER, UNSPECIFIED Assessment/Plan Current Medications Generic Name Dose Route Start Last Admin Trade Name Freq PRN Reason Stop Dose Admin Acetaminophen 650 mg 11/02/17 13:10 Tylenol - PO Q4H PRN FEVER OR PAIN Heparin Sodium (Porcine) 5,000 unit 11/02/17 22:00 11/07/17 11:13 Heparin - SQ 5,000 unit BID CINDY Administration Potassium Chloride/Sodium Chloride 20 meq in 1,000 mls @ 75 mls/hr 11/04/17 21 :00 11/07/17 11:12 Ns+20 Meq Kcl - IV 75 mls/hr ASDIR CINDY Administration Levofloxacin 500 mg in 100 mls @ 100 mls/hr 11/06/17 14:30 11/07/17 11:13 Levaquin 500 Mg Premixed Ivpb - IVPB 100 mls/hr DAILY [facility] Administration Metronidazole 500 mg in 100 mls @ 100 mls/hr 11/06/17 14:30 11/07/17 12:41 Flagyl 500mg Premixed Ivpb - IVPB 100 mls/hr Q8H-IV C[facility] Administration Insulin Aspart 1 vial 11/06/17 11:00 11/07/17 17:26 Novolog Vial Sliding Scale - SQ Not Given ACHS CINDY Protocol Morphine Sulfate 2 mg 11/07/17 14:55 11/07/17 15:01 Morphine Injection - IVPUSH 2 mg Q4H PRN Administration PAIN Nicotine 14 mg 11/02/17 14:45 11/07/17 11:16 Nicoderm Patch - TD 14 mg DAILY [facility] Administration Ondansetron HCl 4 mg 11/02/17 15:05 Zofran Injection IVPUSH Q8H PRN NAUSEA Oxycodone HCl 5 mg 11/05/17 11:38 11/06/17 19:41 Roxicodone - PO 5 mg Q6H PRN Administration PAIN Pantoprazole Sodium 40 mg 11/03/17 10:00 11/07/17 11:13 Protonix Iv IVPUSH 40 mg DAILY [facility] Administration Impression 1. PETER resolving 2. pancreatitis 3. hx DM 4. abdominal pain Plan - renal function is stable - fluids while NPO - monitor creatinine - can see in office as needed - will need repeat UA to evaluate protein seen on first UA - will follow PRN Dr Gordon
--- NOTE | 2017-11-07 17:52 | PN ---
Progress Note (short form) - Note Progress Note: Subjective: The patient was seen and examined at the bedside, he states he is having abdominal pain at this time. Current Medications Generic Name Dose Route Start Last Admin Trade Name Freq PRN Reason Stop Dose Admin Acetaminophen 650 mg 11/02/17 13:10 Tylenol - PO Q4H PRN FEVER OR PAIN Heparin Sodium (Porcine) 5,000 unit 11/02/17 22:00 11/07/17 11:13 Heparin - SQ 5,000 unit BID CINDY Administration Potassium Chloride/Sodium Chloride 20 meq in 1,000 mls @ 75 mls/hr 11/04/17 21 :00 11/07/17 11:12 Ns+20 Meq Kcl - IV 75 mls/hr ASDIR CINDY Administration Levofloxacin 500 mg in 100 mls @ 100 mls/hr 11/06/17 14:30 11/07/17 11:13 Levaquin 500 Mg Premixed Ivpb - IVPB 100 mls/hr DAILY [facility] Administration Metronidazole 500 mg in 100 mls @ 100 mls/hr 11/06/17 14:30 11/07/17 12:41 Flagyl 500mg Premixed Ivpb - IVPB 100 mls/hr Q8H-IV [facility] Administration Insulin Aspart 1 vial 11/06/17 11:00 11/07/17 17:26 Novolog Vial Sliding Scale - SQ Not Given ACHS CINDY Protocol Morphine Sulfate 2 mg 11/07/17 14:55 11/07/17 15:01 Morphine Injection - IVPUSH 2 mg Q4H PRN Administration PAIN Nicotine 14 mg 11/02/17 14:45 11/07/17 11:16 Nicoderm Patch - TD 14 mg DAILY [facility] Administration Ondansetron HCl 4 mg 11/02/17 15:05 Zofran Injection IVPUSH Q8H PRN NAUSEA Oxycodone HCl 5 mg 11/05/17 11:38 11/06/17 19:41 Roxicodone - PO 5 mg Q6H PRN Administration PAIN Pantoprazole Sodium 40 mg 11/03/17 10:00 11/07/17 11:13 Protonix Iv IVPUSH 40 mg DAILY [facility] Administration Objective: Vital Signs Period Temp Pulse Resp BP Sys/Clement Pulse Ox Last 24 Hr 98.2 F-98.5 F 48-81 18-20 130-148/63-81 97 Physical Exam: General: NAD, A&Ox3 Lungs: CTA bilaterally Heart: RRR, S1S2 Abd: Refused Ext: Warm, well-perfused. 2+ DP/PT bilaterally CBCD WBC 6.1 K/mm3 (4.0-10.0) 11/07/17 06:00 RBC 3.64 M/mm3 (4.00-5.60) L 11/07/17 06:00 Hgb 10.7 GM/dL (11.7-16.9) L 11/07/17 06:00 Hct 32.0 % (35.4-49) L 11/07/17 06:00 MCV 87.8 fl (80-96) 11/07/17 06:00 MCHC 33.6 g/dl (32.0-35.9) 11/07/17 06:00 RDW 14.4 % (11.9-15.9) 11/07/17 06:00 Plt Count 313 K/MM3 (134-434) 11/07/17 06:00 MPV 7.4 fl (7.5-11.1) L 11/07/17 06:00 CMP Sodium 139 mmol/L (136-145) 11/07/17 06:00 Potassium 4.3 mmol/L (3.5-5.1) 11/07/17 06:00 Chloride 106 mmol/L (98-107) 11/07/17 06:00 Carbon Dioxide 22 mmol/L (21-32) 11/07/17 06:00 Anion Gap 11 (8-16) 11/07/17 06:00 BUN 11 mg/dL (7-18) 11/07/17 06:00 Creatinine 0.9 mg/dL (0.7-1.3) 11/07/17 06:00 Creat Clearance w eGFR > 60 (>60) 11/07/17 06:00 Random Glucose 99 mg/dL (74-106) 11/07/17 06:00 Calcium 8.1 mg/dL (8.5-10.1) L 11/07/17 06:00 Total Bilirubin 3.4 mg/dL (0.2-1.0) H 11/07/17 06:00 AST 68 U/L (15-37) H 11/07/17 06:00 ALT 78 U/L (12-78) 11/07/17 06:00 Alkaline Phosphatase 196 U/L (45-117) H 11/07/17 06:00 Total Protein 5.0 g/dl (6.4-8.2) L 11/07/17 06:00 Albumin 2.3 g/dl (3.4-5.0) L 11/07/17 06:00 CARDIAC ENZYMES Creatine Kinase 42 IU/L (39-308) 11/02/17 07:00 Troponin I < 0.03 ng/ml (0.03-0.50) L 11/02/17 07:00 Microbiology 11/02/17 16:36 Blood - Peripheral Venous Blood Culture - Final NO GROWTH AFTER 5 DAYS INCUBATION 11/02/17 16:35 Blood - Peripheral Venous Blood Culture - Final NO GROWTH AFTER 5 DAYS INCUBATION 11/02/17 15:00 Urine - Urine Clean Catch Urine Culture - Final NO GROWTH OBTAINED Assessment: This is a 52 year old male with PMHx of diverticulitis, cholelithiasis, chronic pancreatitis, chronic back pain, duedonitis, BPH who presented to the ED with two days of generalized abdominal pain and decreased appetite Plan: 1) Acute gallstone pancreatitis - Lipase wnl - Continue IV fluids - Elevated bilirubin - F/u MRCP w/without contrast - May need ERCP - Pain management - Continue empiric antibiotics - Appreciate GI consult 3) PETER - Resolved 4) F/E/N: - NPO - IV fluids - Monitor electrolytes 5) Prophylaxis: - Heparin 5,000u sq tid 6) Dispo: - Requires continued inpatient care CODE STATUS: FULL CODE Visit type - Emergency Visit Emergency Visit: Yes ED Registration Date: 11/02/17 Care time: The patient presented to the Emergency Department on the above date and was hospitalized for further evaluation of their emergent condition. - New Patient This patient is new to me today: No - Critical Care Critical Care patient: No
[2017-11-07 20:18] LABS: URINE APPEARANCE CLEAR; URINE BILIRUBIN NEGATIVE (NEGATIVE); URINE BLOOD 2+ (NEGATIVE); URINE COLOR AMBER; URINE GLUCOSE (UA) 1+ (NEGATIVE); URINE KETONE 1+ (NEGATIVE); URINE LEUK ESTERASE NEGATIVE (NEGATIVE); URINE NITRITE NEGATIVE (NEGATIVE); URINE PROTEIN NEGATIVE (NEGATIVE); URINE UROBILINOGEN NEGATIVE mg/dL (0.2-1.0)
[2017-11-07 20:30] LABS: URINE BACTERIA RARE /hpf (NONE SEEN); URINE MUCUS RARE
[2017-11-08] MEDS: METRONIDAZOLE 500 MG PREMIXED 500 MG/100 ML MG IVPB SCH ×3 (01:34→18:00)
[2017-11-08] MEDS: HEPARIN NA (PORCINE) 5,000 UNITS/ML 1ML VIAL SQ SCH ×3 (05:21→22:14)
[2017-11-08] MEDS: morphine CARPU-JECT 10 MG/1 ML DISP.SYRIN IVPUSH PRN ×3 (05:22→20:39)
[2017-11-08] MEDS: INSULIN SLIDING SCALE (NOVOLOG) 1 VIAL SQ SCH ×4 (06:15→22:16)
[2017-11-08 07:38] LABS: HEMATOCRIT 34.8 % (35.4-49); HEMOGLOBIN 11.5 GM/dL (11.7-16.9); MCH 29.2 pg (25.7-33.7); MEAN CELL VOLUME 88.5 fl (80-96); MEAN PLT VOLUME 7.3 fl (7.5-11.1); PLATELET COUNT 364 K/MM3 (134-434); RBC 3.93 M/mm3 (4.00-5.60); RDW 14.3 % (11.9-15.9); WHITE BLOOD COUNT 8.1 K/mm3 (4.0-10.0)
[2017-11-08 08:04] LABS: ALBUMIN 2.4 g/dl (3.4-5.0); ANION GAP 16 (8-16); BILIRUBIN,DIRECT 2.1 mg/dL (0.0-0.2); BLOOD UREA NITROGEN 11 mg/dL (7-18); CALCIUM 8.3 mg/dL (8.5-10.1); CHLORIDE 104 mmol/L (98-107); CO2 17 mmol/L (21-32); CREATININE 0.9 mg/dL (0.7-1.3); GLUCOSE,RANDOM 75 mg/dL (74-106); POTASSIUM 4.1 mmol/L (3.5-5.1); SGOT/AST 41 U/L (15-37); SGPT/ALT 64 U/L (12-78); SODIUM 137 mmol/L (136-145)
[2017-11-08 08:05] LABS: ALK PHOS 186 U/L (45-117); BILIRUBIN,TOTAL 2.8 mg/dL (0.2-1.0); TOT PROT 5.3 g/dl (6.4-8.2)
[2017-11-08] MEDS ORDERED: PT OWN MED DRAWER 7, Y5N ONE ×2 (10:11→11:01)
[2017-11-08] MEDS: PANTOPRAZOLE SODIUM 40 MG VIAL IVPUSH SCH (10:17)
[2017-11-08] MEDS: NICOTINE 14 MG/24 HOURS TOPICAL PATCH TD SCH (10:17)
[2017-11-08] MEDS: SODIUM CHLORIDE 0.9%/KCL 20 MEQ/1,000 ML INFUS.BAG IV SCH ×2 (10:17→23:11)
--- NOTE | 2017-11-08 11:45 | PN ---
Progress Note, Physician History of Present Illness: No events. Comfortable. No longer icteric - Current Medication List Current Medications: Active Medications Acetaminophen (Tylenol -) 650 mg PO Q4H PRN PRN Reason: FEVER OR PAIN Heparin Sodium (Porcine) (Heparin -) 5,000 unit SQ TID [facility] Last Admin: 11/08/17 05:21 Dose: 5,000 unit Potassium Chloride/Sodium Chloride (Ns+20 Meq Kcl -) 20 meq in 1,000 mls @ 75 mls/hr IV ASDIR [facility] Last Admin: 11/08/17 10:17 Dose: 75 mls/hr Levofloxacin (Levaquin 500 Mg Premixed Ivpb -) 500 mg in 100 mls @ 100 mls/hr IVPB DAILY [facility] Last Admin: 11/07/17 11:13 Dose: 100 mls/hr Metronidazole (Flagyl 500mg Premixed Ivpb -) 500 mg in 100 mls @ 100 mls/hr IVPB Q8H-IV [facility] Last Admin: 11/08/17 10:17 Dose: 100 mls/hr Insulin Aspart (Novolog Vial Sliding Scale -) 1 vial SQ ACHS [facility] PRN Reason: Protocol Last Admin: 11/08/17 06:15 Dose: Not Given Morphine Sulfate (Morphine Injection -) 2 mg IVPUSH Q4H PRN PRN Reason: PAIN Last Admin: 11/08/17 10:17 Dose: 2 mg Nicotine (Nicoderm Patch -) 14 mg TD DAILY [facility] Last Admin: 11/08/17 10:17 Dose: 14 mg Ondansetron HCl (Zofran Injection) 4 mg IVPUSH Q8H PRN PRN Reason: NAUSEA Pantoprazole Sodium (Protonix Iv) 40 mg IVPUSH DAILY [facility] Last Admin: 11/08/17 10:17 Dose: 40 mg - Objective Vital Signs: Vital Signs Temperature 98.3 F 11/08/17 11:00 Pulse Rate 54 L 11/08/17 11:00 Respiratory Rate 20 11/08/17 11:00 Blood Pressure 115/64 11/08/17 11:00 O2 Sat by Pulse Oximetry (%) 98 11/07/17 21:00 Constitutional: Yes: No Distress, Calm Eyes: Yes: Conjunctiva Clear Gastrointestinal: Yes: Soft. No: Melena, Rectal Bleeding, Tenderness, Tenderness, Epigastrium, Tenderness, Rebound, Vomiting Labs: CBC, BMP 11/08/17 06:00 11/08/17 06:00 INR, PTT INR 1.14 (0.82-1.09) 11/06/17 07:45 Abnormal Lab Results 11/07/17 11/08/17 11/08/17 19:30 06:00 06:00 RBC 3.93 L Hgb 11.5 L Hct 34.8 L MPV 7.3 L Carbon Dioxide 17 L D Calcium 8.3 L Total Bilirubin 2.8 H Direct Bilirubin 2.1 H AST 41 H D Alkaline Phosphatase 186 H Total Protein 5.3 L Albumin 2.4 L Urine Glucose (UA) 1+ H Urine Ketones 1+ H Urine Blood 2+ H - ....Imaging MRI: Pending Problem List - Problems (1) Acute pancreatitis Code(s): K85.90 - ACUTE PANCREATITIS WITHOUT NECROSIS OR INFECTION, UNSP Qualifiers: Pancreatitis type: unspecified pancreatitis type Acute pancreatitis complication: unspecified Qualified Code(s): K85.90 - Acute pancreatitis without necrosis or infection, unspecified (2) Abdominal pain Code(s): R10.9 - UNSPECIFIED ABDOMINAL PAIN Qualifiers: Abdominal location: unspecified location Qualified Code(s): R10.9 - Unspecified abdominal pain (3) Cholelithiasis Code(s): K80.20 - CALCULUS OF GALLBLADDER W/O CHOLECYSTITIS W/O OBSTRUCTION Qualifiers: Cholecystitis presence: without cholecystitis (4) Smoking greater than 30 pack years Code(s): F17.210 - NICOTINE DEPENDENCE, CIGARETTES, UNCOMPLICATED (5) Hyperlipidemia Code(s): E78.5 - HYPERLIPIDEMIA, UNSPECIFIED Assessment/Plan Clinically better Labs improved slightly MRI formal read pending continue hydration clear liquid diet discussed with the patient
[2017-11-08] MEDS: LEVOFLOXACIN 500 MG IVPB 500 MG/100 ML BAG IVPB SCH (11:51)
--- NOTE | 2017-11-08 14:44 | PN ---
Physical Exam: SUBJECTIVE: Patient seen and examined OBJECTIVE: Vital Signs Period Temp Pulse Resp BP Sys/Clement Pulse Ox Last 24 Hr 98.1 F-98.4 F 50-81 18-20 115-145/63-81 98 GENERAL: The patient is awake, alert, and fully oriented, in no acute distress. EYES: sclera anicteric LUNGS: Breath sounds equal, clear to auscultation bilaterally, no wheezes, no crackles, no accessory muscle use. HEART: Regular rate and rhythm, S1, S2 without murmur, rub or gallop. ABDOMEN: SNTND EXTREMITIES: 2+ pulses, warm, well-perfused, no edema. NEUROLOGICAL: Cranial nerves II through XII grossly intact. Normal speech, gait not observed. Laboratory Results - last 24 hr 11/07/17 11/07/17 11/08/17 19:30 23:02 05:25 WBC RBC Hgb Hct MCV MCH MCHC RDW Plt Count MPV Sodium Potassium Chloride Carbon Dioxide Anion Gap BUN Creatinine Creat Clearance w eGFR POC Glucometer 82 81 Random Glucose Calcium Total Bilirubin Direct Bilirubin AST ALT Alkaline Phosphatase Total Protein Albumin Urine Color Adilia Urine Appearance Clear Urine pH 5.0 Ur Specific Hamilton 1.013 Urine Protein Negative Urine Glucose (UA) 1+ H Urine Ketones 1+ H Urine Blood 2+ H Urine Nitrite Negative Urine Bilirubin Negative Urine Urobilinogen Negative Ur Leukocyte Esterase Negative Urine WBC (Auto) 2 Urine RBC (Auto) 2 Urine Bacteria Rare Urine Mucus Rare 11/08/17 11/08/17 11/08/17 06:00 06:00 11:53 WBC 8.1 D RBC 3.93 L Hgb 11.5 L Hct 34.8 L MCV 88.5 MCH 29.2 MCHC 33.0 RDW 14.3 Plt Count 364 MPV 7.3 L Sodium 137 Potassium 4.1 Chloride 104 Carbon Dioxide 17 L D Anion Gap 16 BUN 11 Creatinine 0.9 Creat Clearance w eGFR > 60 POC Glucometer 99 Random Glucose 75 D Calcium 8.3 L Total Bilirubin 2.8 H Direct Bilirubin 2.1 H AST 41 H D ALT 64 Alkaline Phosphatase 186 H Total Protein 5.3 L Albumin 2.4 L Urine Color Urine Appearance Urine pH Ur Specific [place] Urine Protein Urine Glucose (UA) Urine Ketones Urine Blood Urine Nitrite Urine Bilirubin Urine Urobilinogen Ur Leukocyte Esterase Urine WBC (Auto) Urine RBC (Auto) Urine Bacteria Urine Mucus Active Medications Generic Name Dose Route Start Last Admin Trade Name Freq PRN Reason Stop Dose Admin Acetaminophen 650 mg 11/02/17 13:10 Tylenol - PO Q4H PRN FEVER OR PAIN Heparin Sodium (Porcine) 5,000 unit 11/07/17 22:00 11/08/17 13:53 Heparin - SQ 5,000 unit TID CINDY Administration Potassium Chloride/Sodium Chloride 20 meq in 1,000 mls @ 75 mls/hr 11/04/17 21 :00 11/08/17 10:17 Ns+20 Meq Kcl - IV 75 mls/hr ASDIR CINDY Administration Levofloxacin 500 mg in 100 mls @ 100 mls/hr 11/06/17 14:30 11/08/17 11:51 Levaquin 500 Mg Premixed Ivpb - IVPB 100 mls/hr DAILY [facility]Y Administration Metronidazole 500 mg in 100 mls @ 100 mls/hr 11/06/17 14:30 11/08/17 10:17 Flagyl 500mg Premixed Ivpb - IVPB 100 mls/hr Q8H-IV [facility] Administration Insulin Aspart 1 vial 11/06/17 11:00 11/08/17 11:54 Novolog Vial Sliding Scale - SQ Not Given ACHS CINDY Protocol Morphine Sulfate 2 mg 11/07/17 14:55 11/08/17 10:17 Morphine Injection - IVPUSH 2 mg Q4H PRN Administration PAIN Nicotine 14 mg 11/02/17 14:45 11/08/17 10:17 Nicoderm Patch - TD 14 mg DAILY [facility] Administration Ondansetron HCl 4 mg 11/02/17 15:05 Zofran Injection IVPUSH Q8H PRN NAUSEA Pantoprazole Sodium 40 mg 11/03/17 10:00 11/08/17 10:17 Protonix Iv IVPUSH 40 mg DAILY [facility] Administration ASSESSMENT/PLAN: A: 52 year old male with PMHx of diverticulitis, cholelithiasis, chronic pancreatitis, chronic back pain, duedonitis, BPH who presented to the ED with two days of generalized abdominal pain and decreased appetite P: Acute gallstone pancreatitis - Lipase wnl - Continue IV fluids - Improved bilirubin1.1->5.8->2.8 - MRCP as above - May need ERCP - Pain management - Continue empiric antibiotics - GI following PETER - Resolved F/E/N: - advance diet to clears - IV fluids - trend lytes PPX - sqh Dispo- Requires continued inpatient care Visit type - Emergency Visit Emergency Visit: Yes ED Registration Date: 11/02/17 Care time: The patient presented to the Emergency Department on the above date and was hospitalized for further evaluation of their emergent condition. - New Patient This patient is new to me today: Yes Date on this admission: 11/08/17 - Critical Care Critical Care patient: No
[2017-11-09] MEDS: METRONIDAZOLE 500 MG PREMIXED 500 MG/100 ML MG IVPB SCH ×3 (01:25→18:06)
[2017-11-09] MEDS: morphine CARPU-JECT 10 MG/1 ML DISP.SYRIN IVPUSH PRN ×2 (03:58→22:43)
[2017-11-09] MEDS: HEPARIN NA (PORCINE) 5,000 UNITS/ML 1ML VIAL SQ SCH ×3 (05:42→21:16)
[2017-11-09] MEDS: SODIUM CHLORIDE 0.9%/KCL 20 MEQ/1,000 ML INFUS.BAG IV SCH (05:44)
[2017-11-09] MEDS: INSULIN SLIDING SCALE (NOVOLOG) 1 VIAL SQ SCH ×4 (06:04→21:39)
--- NOTE | 2017-11-09 07:34 | PN ---
Progress Note (short form) - Note Progress Note: 52yo male with chronic pancreatitis (most likely gallstone vs. EtOH). Currently resting comfortably. Tolerating liquid diet. OOB and ambulating. Voiding spontaneously. Denies n/v/f/c, CP, SOB, abd pain. Last Vital Signs Temp Pulse Resp BP Pulse Ox 98.6 F 55 L 18 139/70 96 11/08/17 22:00 11/08/17 22:00 11/08/17 22:00 11/08/17 22:00 11/08/17 21:00 TRENDS 11/03/17 11/04/17 11/05/17 11/06/17 11/07/17 11/08/17 07:15 06:45 06:15 07:45 06:00 06:00 Total Bili 5.8 3.4 2.8 Direct Bili 2.1 AST 101 68 41 ALT 66 78 64 Alk Phos 45 159 196 186 Amylase 1630 616 H 107 Lipase 44 35 266 CBC, BMP 11/08/17 06:00 11/08/17 06:00 General: nad Abd: soft. NT. ND. + nowel sounds. Problem List - Problems (1) Acute pancreatitis Assessment/Plan: LFTs are starting to trend down, cont to monitor Patient will need complete resolution of his pancreatitis before surgery to proceed Recommend repeating ABD CT OOB and ambulate Medical optimization Above plan discussed with Dr. Saini and agrees Code(s): K85.90 - ACUTE PANCREATITIS WITHOUT NECROSIS OR INFECTION, UNSP Qualifiers: Pancreatitis type: unspecified pancreatitis type Acute pancreatitis complication: unspecified Qualified Code(s): K85.90 - Acute pancreatitis without necrosis or infection, unspecified
[2017-11-09 08:28] LABS: BASO % 0.8 % (0-2.0); HEMATOCRIT 35.5 % (35.4-49); HEMOGLOBIN 11.8 GM/dL (11.7-16.9); LYMPH % 17.8 % (8-40); MCH 29.3 pg (25.7-33.7); MCHC 33.2 g/dl (32.0-35.9); MEAN CELL VOLUME 88.1 fl (80-96); MEAN PLT VOLUME 7.3 fl (7.5-11.1); MONO % 8.2 % (3.8-10.2); NEUT % 70.2 % (42.8-82.8); PLATELET COUNT 430 K/MM3 (134-434); RBC 4.03 M/mm3 (4.00-5.60); RDW 14.5 % (11.9-15.9); WHITE BLOOD COUNT 9.1 K/mm3 (4.0-10.0)
[2017-11-09 09:02] LABS: CHLORIDE 102 mmol/L (98-107); POTASSIUM 4.3 mmol/L (3.5-5.1); SODIUM 134 mmol/L (136-145)
[2017-11-09 09:11] LABS: ALBUMIN 2.4 g/dl (3.4-5.0); ALK PHOS 228 U/L (45-117); ANION GAP 12 (8-16); BILIRUBIN,TOTAL 2.4 mg/dL (0.2-1.0); BLOOD UREA NITROGEN 8 mg/dL (7-18); CALCIUM 8.4 mg/dL (8.5-10.1); CO2 20 mmol/L (21-32); CREATININE 0.9 mg/dL (0.7-1.3); GLUCOSE,RANDOM 103 mg/dL (74-106); SGOT/AST 44 U/L (15-37); SGPT/ALT 60 U/L (12-78); TOT PROT 5.2 g/dl (6.4-8.2)
[2017-11-09] MEDS ORDERED: PT OWN MED DRAWER 7, Y5N ONE (10:16)
[2017-11-09] MEDS: LEVOFLOXACIN 500 MG IVPB 500 MG/100 ML BAG IVPB SCH (10:35)
[2017-11-09] MEDS: NICOTINE 14 MG/24 HOURS TOPICAL PATCH TD SCH (10:36)
[2017-11-09] MEDS: PANTOPRAZOLE SODIUM 40 MG VIAL IVPUSH SCH (10:39)
--- NOTE | 2017-11-09 12:25 | PN ---
Physical Exam: SUBJECTIVE: Patient seen and examined. He denies abd pain, n/v, he is asking for real food. OBJECTIVE: Vital Signs Period Temp Pulse Resp BP Sys/Clement Pulse Ox Last 24 Hr 98.1 F-98.6 F 54-56 18-18 125-139/64-70 96 Pe Neuro: alert, awake, cn 2-12intact Pulm: CTAB CV: s1 s2 rrr no mrg Abd: lower abd incision healed, no abd tenderness, distention, + bs ExT: warm no le edema Skin: tattoos Laboratory Results - last 24 hr 11/09/17 11/09/17 06:00 06:00 WBC 9.1 RBC 4.03 Hgb 11.8 Hct 35.5 MCV 88.1 MCH 29.3 MCHC 33.2 RDW 14.5 Plt Count 430 MPV 7.3 L Neutrophils % 70.2 Lymphocytes % 17.8 Monocytes % 8.2 Eosinophils % 3.0 Basophils % 0.8 Sodium 134 L Potassium 4.3 Chloride 102 Carbon Dioxide 20 L Anion Gap 12 BUN 8 D Creatinine 0.9 Creat Clearance w eGFR > 60 POC Glucometer Random Glucose 103 D Calcium 8.4 L Total Bilirubin 2.4 H AST 44 H ALT 60 Alkaline Phosphatase 228 H D Total Protein 5.2 L Albumin 2.4 L Active Medications Generic Name Dose Route Start Last Admin Trade Name Michaelq PRN Reason Stop Dose Admin Acetaminophen 650 mg 11/02/17 13:10 Tylenol - PO Q4H PRN FEVER OR PAIN Heparin Sodium (Porcine) 5,000 unit 11/07/17 22:00 11/09/17 05:42 Heparin - SQ 5,000 unit TID CIND[facility] Administration Levofloxacin 500 mg in 100 mls @ 100 mls/hr 11/06/17 14:30 11/09/17 10:35 Levaquin 500 Mg Premixed Ivpb - IVPB 100 mls/hr DAILY [facility] Administration Metronidazole 500 mg in 100 mls @ 100 mls/hr 11/06/17 14:30 11/09/17 10:35 Flagyl 500mg Premixed Ivpb - IVPB 100 mls/hr Q8H-IV CINDY Administration Insulin Aspart 1 vial 11/06/17 11:00 11/09/17 12:20 Novolog Vial Sliding Scale - SQ Not Given ACHS CINDY Protocol Morphine Sulfate 2 mg 11/07/17 14:55 11/09/17 03:58 Morphine Injection - IVPUSH 2 mg Q4H PRN Administration PAIN Nicotine 14 mg 11/02/17 14:45 11/09/17 10:36 Nicoderm Patch - TD 14 mg DAILY CINDY Administration Ondansetron HCl 4 mg 11/02/17 15:05 Zofran Injection IVPUSH Q8H PRN NAUSEA Assessment: 52 year old male with PMHx of diverticulitis s/p colectomy, cholelithiasis, chronic pancreatitis, chronic back pain, duedonitis, BPH who presented to the ED with two days of generalized abdominal pain and decreased appetite Plan: 1. Acute gallstone pancreatitis - Likely d/t ETOH use vs gallstones - Advance to fulls - Obtain CTAP assess pancreatitis tomorrow, if resolved can for cholecystectomy Sunday - D/w surgery 2. Cholelithiasis w/ cholecystitis - No CBD obstruction - To continue outpt work up for liver cirrhosis w/ GI - Can stop abx once discharged - D/w GI 3. PETER - Resolved - Oupt follow up, repeat UA neg for protein 4. Prophylaxis - Heparin 5,000u sq tid Visit type - Emergency Visit Emergency Visit: Yes ED Registration Date: 11/02/17 Care time: The patient presented to the Emergency Department on the above date and was hospitalized for further evaluation of their emergent condition. - New Patient This patient is new to me today: Yes Date on this admission: 11/09/17 - Critical Care Critical Care patient: No
--- NOTE | 2017-11-09 13:37 | PN ---
Progress Note, Physician History of Present Illness: No events. Comfortable. No longer icteric. Advancing diet. MRI results noted. - Current Medication List Current Medications: Active Medications Acetaminophen (Tylenol -) 650 mg PO Q4H PRN PRN Reason: FEVER OR PAIN Heparin Sodium (Porcine) (Heparin -) 5,000 unit SQ TID [facility] Last Admin: 11/09/17 05:42 Dose: 5,000 unit Levofloxacin (Levaquin 500 Mg Premixed Ivpb -) 500 mg in 100 mls @ 100 mls/hr IVPB DAILY [facility] Last Admin: 11/09/17 10:35 Dose: 100 mls/hr Metronidazole (Flagyl 500mg Premixed Ivpb -) 500 mg in 100 mls @ 100 mls/hr IVPB Q8H-IV [facility] Last Admin: 11/09/17 10:35 Dose: 100 mls/hr Insulin Aspart (Novolog Vial Sliding Scale -) 1 vial SQ ACHS [facility] PRN Reason: Protocol Last Admin: 11/09/17 12:20 Dose: Not Given Morphine Sulfate (Morphine Injection -) 2 mg IVPUSH Q4H PRN PRN Reason: PAIN Last Admin: 11/09/17 03:58 Dose: 2 mg Nicotine (Nicoderm Patch -) 14 mg TD DAILY [facility] Last Admin: 11/09/17 10:36 Dose: 14 mg Ondansetron HCl (Zofran Injection) 4 mg IVPUSH Q8H PRN PRN Reason: NAUSEA - Objective Vital Signs: Vital Signs Temperature 98.1 F 11/09/17 07:42 Pulse Rate 56 L 11/09/17 10:00 Respiratory Rate 18 11/09/17 10:00 Blood Pressure 142/76 11/09/17 10:00 O2 Sat by Pulse Oximetry (%) 96 11/08/17 21:00 Constitutional: Yes: No Distress, Calm Eyes: Yes: Conjunctiva Clear HENT: Yes: Atraumatic Neck: Yes: Supple Cardiovascular: Yes: Regular Rate and Rhythm Gastrointestinal: Yes: Normal Bowel Sounds, Soft. No: Tenderness, Tenderness, Epigastrium, Tenderness, Rebound Neurological: Yes: Alert, Oriented Labs: CBC, BMP 11/09/17 06:00 11/09/17 06:00 INR, PTT INR 1.14 (0.82-1.09) 11/06/17 07:45 Abnormal Lab Results 11/09/17 11/09/17 06:00 06:00 MPV 7.3 L Sodium 134 L Carbon Dioxide 20 L Calcium 8.4 L Total Bilirubin 2.4 H AST 44 H Alkaline Phosphatase 228 H D Total Protein 5.2 L Albumin 2.4 L Problem List - Problems (1) Acute pancreatitis Code(s): K85.90 - ACUTE PANCREATITIS WITHOUT NECROSIS OR INFECTION, UNSP Qualifiers: Pancreatitis type: unspecified pancreatitis type Acute pancreatitis complication: unspecified Qualified Code(s): K85.90 - Acute pancreatitis without necrosis or infection, unspecified (2) Abdominal pain Code(s): R10.9 - UNSPECIFIED ABDOMINAL PAIN Qualifiers: Abdominal location: unspecified location Qualified Code(s): R10.9 - Unspecified abdominal pain (3) Cholelithiasis Code(s): K80.20 - CALCULUS OF GALLBLADDER W/O CHOLECYSTITIS W/O OBSTRUCTION Qualifiers: Cholecystitis presence: without cholecystitis (4) Smoking greater than 30 pack years Code(s): F17.210 - NICOTINE DEPENDENCE, CIGARETTES, UNCOMPLICATED (5) Hyperlipidemia Code(s): E78.5 - HYPERLIPIDEMIA, UNSPECIFIED (6) Liver cirrhosis Code(s): K74.60 - UNSPECIFIED CIRRHOSIS OF LIVER Assessment/Plan Clinically better Labs improved slightly MRI formal read noted. Liver cirrhosis. Pt denies significant, chronic alcohol intake. Follow as OP for additional liver work up continue hydration Advance diet discussed with the patient
[2017-11-10] MEDS: METRONIDAZOLE 500 MG PREMIXED 500 MG/100 ML MG IVPB SCH ×2 (01:03→09:00)
[2017-11-10] MEDS: INSULIN SLIDING SCALE (NOVOLOG) 1 VIAL SQ SCH ×2 (06:13→12:18)
[2017-11-10] MEDS: HEPARIN NA (PORCINE) 5,000 UNITS/ML 1ML VIAL SQ SCH ×2 (06:13→13:26)
--- NOTE | 2017-11-10 08:24 | PN ---
Physical Exam: SUBJECTIVE: Patient seen and examined. He is very upset, he wants to eat real food, he is tolerating fulls fine, no abdominal pain. Explained plan of care, pt will wait for CT scan. OBJECTIVE: Vital Signs Period Temp Pulse Resp BP Sys/Clement Pulse Ox Last 24 Hr 98.3 F-99.1 F 48-56 18-20 125-149/62-77 96-99 PE Neuro: alert, awake, cn 2-12intact Pulm: CTAB CV: s1 s2 rrr no mrg Abd: s nt nd +bs Ext: warm no le edema Laboratory Results - last 24 hr 11/09/17 11/09/17 11/09/17 06:00 06:00 12:07 WBC 9.1 RBC 4.03 Hgb 11.8 Hct 35.5 MCV 88.1 MCH 29.3 MCHC 33.2 RDW 14.5 Plt Count 430 MPV 7.3 L Neutrophils % 70.2 Lymphocytes % 17.8 Monocytes % 8.2 Eosinophils % 3.0 Basophils % 0.8 Sodium 134 L Potassium 4.3 Chloride 102 Carbon Dioxide 20 L Anion Gap 12 BUN 8 D Creatinine 0.9 Creat Clearance w eGFR > 60 POC Glucometer 150 Random Glucose 103 D Calcium 8.4 L Total Bilirubin 2.4 H AST 44 H ALT 60 Alkaline Phosphatase 228 H D Total Protein 5.2 L Albumin 2.4 L Active Medications Generic Name Dose Route Start Last Admin Trade Name Freq PRN Reason Stop Dose Admin Acetaminophen 650 mg 11/02/17 13:10 Tylenol - PO Q4H PRN FEVER OR PAIN Heparin Sodium (Porcine) 5,000 unit 11/07/17 22:00 11/10/17 06:13 Heparin - SQ Not Given TID CINDY Levofloxacin 500 mg in 100 mls @ 100 mls/hr 11/06/17 14:30 11/09/17 10:35 Levaquin 500 Mg Premixed Ivpb - IVPB 100 mls/hr DAILY CINDY Administration Metronidazole 500 mg in 100 mls @ 100 mls/hr 11/06/17 14:30 11/10/17 01:03 Flagyl 500mg Premixed Ivpb - IVPB 100 mls/hr Q8H-IV CINDY Administration Insulin Aspart 1 vial 11/06/17 11:00 11/10/17 06:13 Novolog Vial Sliding Scale - SQ Not Given ACHS [facility] Protocol Morphine Sulfate 2 mg 11/07/17 14:55 11/09/17 22:43 Morphine Injection - IVPUSH 2 mg Q4H PRN Administration PAIN Nicotine 14 mg 11/02/17 14:45 11/09/17 10:36 Nicoderm Patch - TD 14 mg DAILY CINDY Administration Ondansetron HCl 4 mg 11/02/17 15:05 Zofran Injection IVPUSH Q8H PRN NAUSEA Assessment: 52 year old male with PMHx of diverticulitis s/p colectomy, cholelithiasis, chronic pancreatitis, chronic back pain, duedonitis, BPH who presented to the ED with two days of generalized abdominal pain and decreased appetite Plan: 1. Acute gallstone pancreatitis - Likely d/t ETOH use vs gallstones - For CTAP assess pancreatitis today, if resolved can for cholecystectomy Sunday 2. Cholelithiasis w/ cholecystitis - No CBD obstruction - To continue outpt work up for liver cirrhosis w/ GI - Can stop abx once discharged 3. PETER - Resolved - Oupt follow up, repeat UA neg for protein 4. Prophylaxis - Heparin 5,000u sq tid Visit type - Emergency Visit Emergency Visit: Yes ED Registration Date: 11/02/17 Care time: The patient presented to the Emergency Department on the above date and was hospitalized for further evaluation of their emergent condition. - New Patient This patient is new to me today: No - Critical Care Critical Care patient: No
[2017-11-10 08:55] LABS: CHLORIDE 102 mmol/L (98-107); POTASSIUM 4.1 mmol/L (3.5-5.1); SODIUM 138 mmol/L (136-145)
[2017-11-10] MEDS: NICOTINE 14 MG/24 HOURS TOPICAL PATCH TD SCH (09:00)
[2017-11-10 09:03] LABS: ALBUMIN 2.5 g/dl (3.4-5.0); ALK PHOS 435 U/L (45-117); ANION GAP 11 (8-16); BILIRUBIN,TOTAL 2.4 mg/dL (0.2-1.0); BLOOD UREA NITROGEN 5 mg/dL (7-18); CALCIUM 8.6 mg/dL (8.5-10.1); CO2 25 mmol/L (21-32); CREATININE 0.9 mg/dL (0.7-1.3); GLUCOSE,RANDOM 121 mg/dL (74-106); SGOT/AST 168 U/L (15-37); SGPT/ALT 123 U/L (12-78); TOT PROT 5.2 g/dl (6.4-8.2)
[2017-11-10] MEDS: LEVOFLOXACIN 500 MG IVPB 500 MG/100 ML BAG IVPB SCH (09:58)
--- NOTE | 2017-11-10 15:15 | PN ---
Progress Note, Physician History of Present Illness: No events. Comfortable. Bump in liver enzymes however asymptomatic and hungry. Repeat CT showed interval improvement in "acute pancreatitis findings" - Current Medication List Current Medications: Active Medications Acetaminophen (Tylenol -) 650 mg PO Q4H PRN PRN Reason: FEVER OR PAIN Heparin Sodium (Porcine) (Heparin -) 5,000 unit SQ TID [facility] Last Admin: 11/10/17 13:26 Dose: 5,000 unit Levofloxacin (Levaquin 500 Mg Premixed Ivpb -) 500 mg in 100 mls @ 100 mls/hr IVPB DAILY [facility] Last Admin: 11/10/17 09:58 Dose: 100 mls/hr Metronidazole (Flagyl 500mg Premixed Ivpb -) 500 mg in 100 mls @ 100 mls/hr IVPB Q8H-IV CINDY Last Admin: 11/10/17 09:00 Dose: 100 mls/hr Insulin Aspart (Novolog Vial Sliding Scale -) 1 vial SQ ACHS CINDY PRN Reason: Protocol Last Admin: 11/10/17 12:18 Dose: 2 units Nicotine (Nicoderm Patch -) 14 mg TD DAILY [facility] Last Admin: 11/10/17 09:00 Dose: 14 mg Ondansetron HCl (Zofran Injection) 4 mg IVPUSH Q8H PRN PRN Reason: NAUSEA - Objective Vital Signs: Vital Signs Temperature 98.1 F 11/10/17 10:00 Pulse Rate 43 L 11/10/17 10:00 Respiratory Rate 20 11/10/17 10:00 Blood Pressure 149/77 11/10/17 10:00 O2 Sat by Pulse Oximetry (%) 99 11/10/17 09:00 Constitutional: Yes: Well Nourished, No Distress, Calm Eyes: Yes: Conjunctiva Clear HENT: Yes: Atraumatic Neck: Yes: Supple Cardiovascular: Yes: Regular Rate and Rhythm Respiratory: Yes: Regular Gastrointestinal: Yes: Normal Bowel Sounds, Soft. No: Tenderness Neurological: Yes: Alert, Oriented Labs: CBC, BMP 11/09/17 06:00 11/10/17 07:47 INR, PTT INR 1.14 (0.82-1.09) 11/06/17 07:45 Abnormal Lab Results 11/10/17 07:47 BUN 5 L D Random Glucose 121 H Total Bilirubin 2.4 H AST 168 H D ALT 123 H D Alkaline Phosphatase 435 H D Total Protein 5.2 L Albumin 2.5 L Problem List - Problems (1) Acute pancreatitis Code(s): K85.90 - ACUTE PANCREATITIS WITHOUT NECROSIS OR INFECTION, UNSP Qualifiers: Pancreatitis type: unspecified pancreatitis type Acute pancreatitis complication: unspecified Qualified Code(s): K85.90 - Acute pancreatitis without necrosis or infection, unspecified (2) Abdominal pain Code(s): R10.9 - UNSPECIFIED ABDOMINAL PAIN Qualifiers: Abdominal location: unspecified location Qualified Code(s): R10.9 - Unspecified abdominal pain (3) Cholelithiasis Code(s): K80.20 - CALCULUS OF GALLBLADDER W/O CHOLECYSTITIS W/O OBSTRUCTION Qualifiers: Cholecystitis presence: without cholecystitis (4) Smoking greater than 30 pack years Code(s): F17.210 - NICOTINE DEPENDENCE, CIGARETTES, UNCOMPLICATED (5) Hyperlipidemia Code(s): E78.5 - HYPERLIPIDEMIA, UNSPECIFIED (6) Liver cirrhosis Code(s): K74.60 - UNSPECIFIED CIRRHOSIS OF LIVER Assessment/Plan Clinically better Advance diet follow with sx as OP in 1 week follow with GI as OP in 1 week discussed with the patient, hospitalist, kiara
[2017-11-10 15:16] VITALS: BP 124/78; PULSE 66; TEMP 98.6
--- NOTE | 2017-11-10 16:00 | DS ---
Physical Exam: SUBJECTIVE: Patient seen and examined OBJECTIVE: Vital Signs Period Temp Pulse Resp BP Sys/Clemnet Pulse Ox Last 24 Hr 98.1 F-99.1 F 43-66 18-20 124-149/62-78 99-99 PE Neuro: alert, awake, cn 2-12intact Pulm: CTAB CV: s1 s2 rrr no mrg Abd: s nt nd +bs Ext: warm no le edema Laboratory Results - last 24 hr 11/09/17 11/09/17 11/10/17 17:10 21:12 07:47 Sodium 138 Potassium 4.1 Chloride 102 Carbon Dioxide 25 D Anion Gap 11 BUN 5 L D Creatinine 0.9 Creat Clearance w eGFR > 60 POC Glucometer 197 212 Random Glucose 121 H Calcium 8.6 Total Bilirubin 2.4 H AST 168 H D ALT 123 H D Alkaline Phosphatase 435 H D Total Protein 5.2 L Albumin 2.5 L HOSPITAL COURSE: Date of Admission:11/02/17 Date of Discharge: 11/10/17 Minutes to complete discharge: 37 Discharge Summary Reason For Visit: PANCREATITIS Current Active Problems Acute pancreatitis (Acute) Liver cirrhosis (Acute) Hospital Course: Initial Hospital Course: Briefly, this 52 year old male presented with worsening epigastric pain, radiating to the back x 1 day. The pain was associated with nausea and vomiting. No fever, chills, diarrhea, melena, hematochezia, hematemesis, jaundice. Had 2 shots of Fireball the day before. History of pancreatitis in the past with pancreatic calcifications, dilated PD and inflammation around head of the pancrease on a CT obtained on this admission. US of the liver showed mobile GS and borderline CBD and no reported filling defects Subsequent Hospital Course/Progress Note/Dc summary: Assessment: 52 year old male with PMHx of diverticulitis s/p colectomy, cholelithiasis, chronic pancreatitis, chronic back pain, duedonitis, BPH who presented to the ED with two days of generalized abdominal pain and decreased appetite Plan: 1. Acute gallstone pancreatitis - Likely d/t ETOH use vs gallstones - Repeat CT showed interval improvement in acute pancreatitis findings - Outpt follow up with GI and surgery in 1 week 2. Cholelithiasis w/ cholecystitis - Increase in LFT's today, pt very hungry, possibly moving stone, however will need further outpt monitoring prior to surgery for lap ciara - No CBD obstruction - To continue outpt work up for liver cirrhosis w/ GI - Short course of levaquin/flagyl inpt 3. PETER - Resolved - Oupt follow up, repeat UA neg for protein Dispo: - Home with above follow up - Pt aware Condition: Stable - Instructions Diet, Activity, Other Instructions: Please return to the ED for any new, persistent, or worsening symptoms. Follow up with your PCP in 1 week Take home meds as directed Follow up with Dr. Saini (surgery) and Dr. Wolff (GI doctor) in 1 week for continued work up and follow up, including gallbladder surgery (referrals enclosed) Referrals: Manav Saini MD [Staff Physician] - 1 Week Gildardo Coon MD [Primary Care Provider] - Bolivar Wolff MD [Staff Physician] - 1 Week Disposition: HOME - Home Medications Comprehensive Discharge Medication List: Ambulatory Orders Cyclobenzaprine HCl [Flexeril -] 10 mg PO TID PRN 09/16/16 Zolpidem Tartrate [Ambien] 10 mg PO HS PRN 11/28/16 Cholecalciferol (Vitamin D3) [Vitamin D3] 2,000 unit PO DAILY tablet 02/11/17 Oxycodone HCl/Acetaminophen [Percocet 10-325 mg Tablet] 1 each PO TID 11/02/17 This patient is new to me today: No Emergency Visit: Yes ED Registration Date: 11/02/17 Care time: The patient presented to the Emergency Department on the above date and was hospitalized for further evaluation of their emergent condition. Critical Care patient: No - Discharge Referral Referred to [facility] Med P.C.: No
--- NOTE | 2017-11-12 10:47 | EKG ---
Test Reason : Blood Pressure : / mmHG Vent. Rate : 072 BPM Atrial Rate : 072 BPM P-R Int : 132 ms QRS Dur : 090 ms QT Int : 360 ms P-R-T Axes : 056 000 -61 degrees QTc Int : 394 ms SINUS RHYTHM WITH MARKED SINUS ARRHYTHMIA NONSPECIFIC T WAVE ABNORMALITY WHEN COMPARED WITH ECG OF 02-NOV-2017 07:46, QT HAS LENGTHENED Confirmed by MD MARIE, TREASURE ([id number]) on 11/12/2017 10:47:48 AM Referred By: DR ERICKSON Confirmed By:TREASURE SALAZAR MD
== END 2017-11-10 17:51 | disposition home or self-care (01) | DRG 439 ==
LOC: FER 06:09 → FM/S 13:54 → J8W 11-06 18:21
PROVIDERS: ADMIT Internal Medicine; ATTEND Nurse Practitioner Acute Care
DX: K85.10 Biliary acute pancreatitis without necrosis or infection (principal); N17.9 Acute kidney failure, unspecified; K74.60 Unspecified cirrhosis of liver; K86.1 Other chronic pancreatitis; E11.22 Type 2 diabetes mellitus with diabetic chronic kidney disease; N18.2 Chronic kidney disease, stage 2 (mild); E86.0 Dehydration; E83.52 Hypercalcemia; E78.5 Hyperlipidemia, unspecified; F17.210 Nicotine dependence, cigarettes, uncomplicated; N40.0 Benign prostatic hyperplasia without lower urinary tract symptoms; K80.20 Calculus of gallbladder without cholecystitis without obstruction
CPT/HCPCS: 36415; 74176-TC; 74177-TC; 74178-TC; 74181-TC; 74183-TC; 76705-TC; 76775-TC; 76856-TC; 76870-TC; 80053; 80061; 80076; 81003; 81015; 82150; 82550; 82962; 83036; 83690; 83735; 84100; 84484; 85025; 85027; 85610; 86704; 86706; 86708; 86803; 87040; 87086; 87340; 93005; 93010; 94010; 99283-25; J1644

== ENCOUNTER 2019-01-08 09:00 | Day surgery (SDC) | payer OTHER ==
--- NOTE | 2018-12-24 11:39 | PREOP ---
DATE OF ADMISSION: 01/08/2019 HISTORY: This is a 53-year-old man who presents for open repair of a right inguinal scrotal hernia. Patient is status post open left inguinal hernia repair in the . He has also had an open laparotomy for diverticular disease in 2000. Patient now presents for repair of his right inguinal scrotal hernia which will be done traditionally as he is not felt to be a good candidate for laparoscopic preperitoneal hernia surgery given his prior abdominal wall surgeries. Patient does have underlying prostatism and takes Flomax on a regular basis. Patient also smokes. These both may be contributing factors to his hernia formation. No GI complaints to suggest further predisposition. PAST MEDICAL HISTORY: Significant for GERD, hypercholesterolemia, and diabetes. PAST SURGICAL HISTORY: Significant for diverticular surgery around 2000, and an open left inguinal hernia repair with mesh in the late . ALLERGIES: PENICILLIN, ASPIRIN. CURRENT MEDICATIONS: Glimepiride, atorvastatin, fenofibrate, flomax, tradjenta , metformin, famotidine, cyclobenzaprine, MVI. SOCIAL HISTORY: Positive tobacco, a pack per day. Negative alcohol. FAMILY HISTORY: Father age 67, no history. Mother age 67, no history. Siblings x2 well. REVIEW OF SYSTEMS: Nil. PHYSICAL EXAMINATION: Abdomen: Patient examined in the erect and supine position, there are multiple scars noted about the abdominal wall including low midline scar consistent with prior diverticular surgery as well as scar at the level of the left groin consistent with open left inguinal hernia repair with mesh. At the right groin, there is a right inguinal scrotal hernia which is difficult but reducible. Scrotum is unremarkable. The testes are bilaterally intact with mild atrophy. IMPRESSION: Symptomatic reducible right inguinal hernia, history of prior laparotomy as well as open left inguinal hernia repair with mesh. PLAN: Open right inguinal scrotal hernia repair with mesh. Indications, alternatives, and possible complications were reviewed. Issues that relate to placement of the mesh which include but are not limited to infection, rejection, migration, and neuritis have been reviewed. Consent obtained. Patient to be seen preoperatively by Dr. Roxanne Soares. Please refer to his notes for those medical details. AMARIS PEREZ M.D. [id number] cc: ROXANNE SOARES MD [facility]
[2018-12-27 17:31] VITALS: BMI 20.7
[2019-01-08] MEDS ORDERED: TAMSULOSIN HCL 0.4 MG CAP ONE (09:18)
[2019-01-08] MEDS ORDERED: ROPIVACAINE HCL 0.5% 30ML VIAL ONE (10:34)
[2019-01-08] MEDS ORDERED: MIDAZOLAM HCL 2 MG/2 ML SINGLE DOSE VIAL ONE (10:34)
[2019-01-08] MEDS ORDERED: KETOROLAC TROMETHAMINE 30 MG/1 ML VIAL ONE (11:38)
[2019-01-08] MEDS ORDERED: oxyCODONE HCL 5 MG TABLET PO PRN ×2 (11:50)
[2019-01-08] MEDS ORDERED: ONDANSETRON 4 MG/2 ML VIAL IVPUSH PRN (11:50)
[2019-01-08] MEDS ORDERED: BUPIVACAINE HCL/PF 0.5% (5MG/ML) 10 ML VIAL ONE (11:51)
[2019-01-08] MEDS ORDERED: NEOSTIGMINE METHYLSULFATE 0.5 MG/ML - 10 ML MDV ONE (11:54)
[2019-01-08] MEDS ORDERED: GLYCOPYRROLATE 0.2 MG/1 ML VIAL ONE (11:54)
[2019-01-08] MEDS ORDERED: LACTATED RINGERS SOLUTION 1,000 ML IV SCH (12:00)
[2019-01-08] MEDS ORDERED: ONDANSETRON 4 MG/2 ML VIAL ONE (12:40)
[2019-01-08] MEDS ORDERED: ONDANSETRON 4 MG/2 ML VIAL IVPUSH ONE (12:41)
[2019-01-08 13:38] VITALS: PULSE 97; TEMP 97.9
[2019-01-08] MEDS ORDERED: oxyCODONE HCL 5 MG TABLET ONE (13:48)
[2019-01-08 16:05] VITALS: BP 112/68
--- NOTE | 2019-01-09 11:31 | OP ---
DATE OF OPERATION: 01/08/2019 PREOPERATIVE DIAGNOSIS: Right inguinal hernia. POSTOPERATIVE DIAGNOSIS: Indirect right inguinal hernia. PROCEDURE: Open repair, right inguinal hernia, with mesh/intermediate wound closure (8 cm). OPERATING SURGEON: Matthew Rodríguez MD OCCASIONAL BABYSITTER: Jayson Smiley MD ANESTHESIA: General, Oswaldo Palacio MD. HISTORY: This is a 53-year-old man who presents for open right inguinal hernia repair as management of a symptomatic rather large right inguinal scrotal hernia. History of contralateral repair. History of prior abdominal surgery for diverticular disease. Not felt to be a good candidate for preperitoneal hernia repair. Indications, alternatives and possible complications reviewed. Consent obtained. PROCEDURE: With the patient in the supine position, and after general anesthesia, the abdomen was prepped and draped in sterile fashion using chlorhexidine. An 8-cm right groin incision was made between the right pubic tubercle and right anterior iliac spine. The incision was deepened into the subcutaneous space. All identified vessels in the subcutaneous space were clamped, divided and ligated. The undersurface of the split clamped, divided and ligated. The external oblique aponeurosis was then opened in the direction of its fibers. The underlying ilioinguinal nerve was identified and spared. The undersurface of the split external oblique aponeurosis to the level of the pubic tubercle at which point Trinchera drain was placed around the cord structures. The cord was skeletonized of its cremasteric fibers. Exploration revealed a large indirect sac. The area of the sac was from the remaining cord structures, exercising care not to injure the vas or its vascular component. The sac was mobilized to the level of the preperitoneal fat and inferior epigastric vessels. The sac was opened, found to contain no structures. It was transfixed at its base with 2-0 silk suture material x2. The sac was amputated and sent as right inguinal hernia sac. Now directing our attention to the inguinal floor there was attenuation of the superior transversalis. The transversalis was split throughout its entire length. The preperitoneal tissues were further reduced. A Davol plug was placed in the preperitoneal space and fanned out under the deep musculature where it was tacked in place with circumferential 2-0 Prolene sutures. The transversalis fascia was then imbricated in 2 layers over the Davol plug, leaving the plug entirely in the preperitoneal space. This was accomplished with a continuous 2-0 Prolene suture beginning at the pubic tubercle, proceeding superiorly and reconstructing the internal ring to permit only fingertip entrance, and then returning to the pubic tubercle where it was tied to itself. An overlay mesh was then fashioned about the inguinal floor and tacked in place circumferentially with 2-0 Prolene sutures. The superior keyholed portion of the mesh was wrapped around the cord and tacked in place, buttressing the internal ring. The ilioinguinal nerve and cord were returned to their anatomic positions. The overlying external oblique aponeurosis was closed using a continuous 3-0 Vicryl suture. After adequate hemostasis the wound was closed in layers. Himanshu fascia was then approximated using interrupted 3-0 chromic suture. Subcuticular layer was approximated using interrupted 4-0 Biosyn. Skin edges were closed using 4-0 Biosyn in the subcuticular space in continuous fashion. Prior to complete closure of the wound 10 mL of 0.5% Marcaine was freely instilled. Dermabond applied. Needle, sponge, instrument count correct. Estimated blood loss minimal. SPECIMEN: Hernia sac and cord lipoma. DRAIN: None. IMPLANT: Mesh plug. Patient tolerated the procedure. The procedure was terminated. Syeda [id number] cc: MTDLefty
--- NOTE | 2019-01-10 17:16 | PATH ---
Surgical Pathology Report Patient Name: ESTEBAN NELSON [facility]. Rec. #: [id number] /Age/Gender: 1965 (Age: 53) / M Account: [id number] Location: [facility] AMBULATORY Taken: 01/08/2019 Received: 01/08/2019 Reported: 01/10/2019 Physicians: Matthew Rodríguez M.D. Specimen(s) Received HERNIA SAC & CORD LIPOMA Clinical History Right inguinal hernia Final Diagnosis HERNIA SAC AND CORD LIPOMA, RIGHT, OPEN INGUINAL HERNIA REPAIR: HERNIA SAC AND FIBROADIPOSE TISSUE CONSISTENT WITH LIPOMA. Electronically Signed Ashlyn Hernandez M.D. Gross Description Received in formalin labeled "hernia sac and cord lipoma," is a 6.0 x 3.7 x 1.5 cm aggregate of rodriguez payton fibromembranous tissue admixed with yellow, lobulated adipose tissue. Drag Seiner sections are submitted in one cassette. /01/09/2019 [facility]01/09/2019
== END 2019-01-08 15:35 | disposition home or self-care (01) ==
LOC: FASU 09:00
PROVIDERS: ATTEND Surgery
PROC: 0YU50JZ Supplement Right Inguinal Region with Synthetic Substitute, Open Approach (ICD-10-PCS; principal; 2019-01-08 11:13)
DX: K40.90 Unilateral inguinal hernia, without obstruction or gangrene, not specified as recurrent (principal); N40.1 Benign prostatic hyperplasia with lower urinary tract symptoms; K21.9 Gastro-esophageal reflux disease without esophagitis; F17.210 Nicotine dependence, cigarettes, uncomplicated; E11.9 Type 2 diabetes mellitus without complications; Z88.0 Allergy status to penicillin; Z88.6 Allergy status to analgesic agent; Z79.84 Long term (current) use of oral hypoglycemic drugs
CPT/HCPCS: 82962; 88302-TC; 94760

== ENCOUNTER 2019-04-04 14:16 | Emergency (ER) | payer OTHER | END 2019-04-04 19:20 | disposition short-term general hospital (02) | LOC: FER 14:16 ==

== ENCOUNTER 2021-12-05 15:49 | Emergency (ER) | payer OTHER ==
[2021-12-05 15:58] VITALS: BP 107/68; PULSE 75; TEMP 98; BMI 22.5
[2021-12-05] MEDS ORDERED: ACETAMINOPHEN 500 MG TABLET (FP) PO ONE (16:06)
[2021-12-05] MEDS ORDERED: ACETAMINOPHEN 325 MG TABLET (FP) ONE (16:12)
== END 2021-12-05 17:00 | disposition home or self-care (01) ==
LOC: FER 15:49
DX: S69.91XA Unspecified injury of right wrist, hand and finger(s), initial encounter (principal); W01.0XXA Fall on same level from slipping, tripping and stumbling without subsequent striking against object, initial encounter
CPT/HCPCS: 73110-TC-RT-FY; 73130-TC-RT-FY; 99283-25